=== PATIENT | female | born 1980 | race Caucasian/White ===

== ENCOUNTER 2016-12-20 03:51 | Inpatient (IN) | payer OTHER ==
[2016-12-20] VITALS (14 sets, daily range): BP systolic 127–142; BP diastolic 82–104
[~2016-12-20] VITALS: Ht 160 cm; Wt 38.7 kg
[~2016-12-20 03:51] MED LIST: CRAN1TAB PO; FOLI1TAB2 PO; IMOD2TAB16 PO; INVA1INJ IV; LOPR1TAB6 PO; LYRI75CA PO; METO25TAB PO; NICO21PAT TD; OXAZ10CA PO; PANT40TA2 PO; PERCOCET PO; POTA10CA PO; PROTPAK PO; Pantoprazole Sodium PO; SERT-138 PO; SIME1CAP PO; SUCR1SS PO; Sucralfate PO; Thiamine Hcl PO; VALI5TAB PO; VITA50TA PO; VITMTA PO; ZOFR20TA PO; ZOFR4TAB3 PO; ZOLO100T PO
[2016-12-20] MEDS ORDERED: OXAZEPAM 15 MG CAP As Ordered ONE (04:50)
[2016-12-20] MEDS ORDERED: LORazepam 2 MG/ML VIAL (J2060) As Ordered ONE (04:50)
[2016-12-20 05:03] LABS: MEAN CORPUSCULAR HEMOGLOBIN 26.9 pg (27.0-33.0); MEAN CORPUSCULAR HGB CONC 31.8 g/dl (32.0-36.5); MEAN CORPUSCULAR VOLUME 84.4 fl (80.0-96.0); RED CELL DISTRIBUTION WIDTH 19.3 % (11.5-14.5); WHITE BLOOD COUNT 5.8 K/mm3 (4.0-10.0)
[2016-12-20 05:10] LABS: ALBUMIN/GLOBULIN RATIO 0.71 (1.00-1.93); ALKALINE PHOSPHATASE 646 U/L (45-117); ALT/SGPT 445 U/L (12-78); ANION GAP 12 MEQ/L (8-16); AST/SGOT 741 U/L (15-37); BILIRUBIN,DIRECT 1.3 MG/DL (0.0-0.2); BILIRUBIN,TOTAL 1.8 MG/DL (0.2-1.0); BLOOD UREA NITROGEN 11 MG/DL (7-18); CALCIUM LEVEL 7.7 MG/DL (8.5-10.1); CARBON DIOXIDE LEVEL 25 MEQ/L (21-32); CHLORIDE LEVEL 101 MEQ/L (98-107); CREATININE FOR GFR 0.64 MG/DL (0.55-1.02); GLOMERULAR FILTRATION RATE > 60.0 (>60); GLUCOSE, FASTING 108 MG/DL (70-105); MAGNESIUM LEVEL 1.9 MG/DL (1.8-2.4); POTASSIUM SERUM 3.3 MEQ/L (3.5-5.1); SODIUM LEVEL 138 MEQ/L (136-145); TOTAL PROTEIN 7.2 GM/DL (6.4-8.2)
[2016-12-20 06:24] LABS: INR 1.12
--- NOTE | 2016-12-20 07:00 | REPUSA ---
CLINICAL HISTORY: Abdominal pain. TECHNIQUE: Realtime sonographic images were obtained in multiple projections. COMMENTS: The liver is of normal size, parenchyma demonstrates normal echogenicity. No discrete hepatic mass is seen. There is no intra or extrahepatic biliary ductal dilatation. CBD measures 9.6 mm . The gallbladder is surgically absent. The gallbladder wall is not thickened and there is no pericholecystic fluid. Ther e is no abdominal ascites. The right kidney measures 10.1x5x4.2 cm, free of hydronephrosis. IMPRESSION: Cholecystectomy. Nondilated biliary tree. Thank you for your kind referral of this patient.
[2016-12-20] MEDS ORDERED: POTASSIUM CHLORIDE 10 MEQ SR TABLET As Ordered ONE (07:03)
--- NOTE | 2016-12-20 07:59 | REP ---
PA CHEST: 12/20/2016. Comparison: 04/10/2016 portable chest. Clinical history: Altered mental status. Findings: The lung natarajan are well inflated. Heart is not enlarged. There is no widening of the mediastinum. The aorta and airway intact. There is no pleural effusion, lateral pleural thickening or apical pneumothorax. Haziness over the lung natarajan, right greater than left in the mid chest suggest overlying breast tissue. No air bronchograms or dense consolidation. No definite atelectasis or mass. Bones intact. No free air. Impression: 1. No acute cardiopulmonary change. Hazy density bilaterally midchest most likely represents the overlying breast tissue. Signed by Clarence John MD 12/20/2016 07:22 P
--- NOTE | 2016-12-20 08:00 | REPUSA ---
CLINICAL HISTORY: AMS. TECHNIQUE: Multiple axial brain CT scan sections were obtained from base to vertex without contrast a dministration. COMMENTS: The study shows normal configuration of sella turcica. There are no intra or extra-axial collections. There is no mass effect or midline shift. There is no evidence of hematoma formation. No hydrocephal us is present. No abnormal calcifications are noted. No significant abnormalities are seen either in the posterior fossa or supratentorial compartment. The sinuses and mastoid air cells are patent. IMPRESSION: No evidence of acute intracranial pathology. Thank you for your kind referral of this patient.
[2016-12-20] MEDS ORDERED: BUSP10TA PO (08:07)
[2016-12-20] MEDS ORDERED: BUSP5TA PO (08:07)
[2016-12-20] MEDS ORDERED: METO25TA74 PO (08:09)
[2016-12-20] MEDS ORDERED: HYDR50CA2 PO (08:09)
[2016-12-20] MEDS ORDERED: MELA3TAB PO (08:10)
[2016-12-20] MEDS ORDERED: SUCR1TAB56 PO (08:10)
[2016-12-20] MEDS ORDERED: POTA99TA PO (08:13)
[2016-12-20] MEDS ORDERED: RANI150T PO (08:13)
[2016-12-20] MEDS ORDERED: ZOFR20TA PO (08:13)
[2016-12-20] MEDS ORDERED: MAGN500T2 PO (08:13)
--- NOTE | 2016-12-20 09:49 | EDDOCDS ---
Nurse's Notes [facility] Name: Quynh Hoyos Age: 36 yrs Sex: Female : 1980 Arrival Date: 12/20/2016 Time: 03:51 Bed 10 Private MD: Diagnosis: Weakness;Alcohol abuse;Alcohol abuse counseling and surveillance;Alcohol abuse with other alcohol-induced disorder;Alcoholic hepatitis-with confusion Presentation: 12/20 03:56 Presenting complaint: Patient states: she is going through alcohol withdrawal, states nn1 she is getting ready to go to rehab. States she is drinking less than usual. Reports she feels very dehydrated. Reports she normally drank a pint/day and is now down to half pint/day. Reports feeling disoriented. States she was sent to [place] from [place] 2 weeks ago due to low electrolyte levels. Mental Health Triage Level: Level 1- Pt displays no suicidal or homicidal ideations and does not appear to be a danger to self or others. Adult Sepsis Screening: The patient does not have new or worsening altered mentation. Patient's respiratory rate is less than 22. Systolic blood pressure is greater than 100. Patient has a qSOFA score of 0- Negative Sepsis Screen. Suicide/Homicide risk assessment- the patient denies having any suicidal and/or homicidal ideations and does not present with any other emotional, behavioral or mental health complaints. Status: The patient is a dependent. Transition of care: patient was not received from another setting of care. 03:56 Acuity: KELVIN Level 3 nn1 03:56 Method Of Arrival: Wheelchair nn1 Triage Assessment: 04:06 General: Appears ill, Behavior is appropriate for age, cooperative. Pain: Location: nn1 face and abdomen Pain currently is 6 out of 10 on a pain scale. HIV screening NA for this visit Offered previously. Neurological: Level of Consciousness is awake, alert, obeys commands, Oriented to person, place, time. Respiratory: Airway is patent Respiratory effort is even, unlabored, Respiratory pattern is regular, symmetrical. Derm: Skin is pale. 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 BuSpar 10mg at 8am and 12pm; 5mg at 5pm oral tab 2. hydroxyzine HCl 50 mg Oral tab 2 tabs three times a day 3. Lopressor 25mg Oral 1 tab once daily 4. Lyrica 75mg Oral 1 cap 3 times per day 5. melatonin 3 mg Oral TbDL as needed 6. sucralfate 1 gram Oral tab 4 times per day 7. Zantac 150 mg Oral tab once daily 8. Zofran (as hydrochloride) 4 mg Oral tab 2 tabs prn 9. Zoloft 100 mg Oral tab 1 tab once daily 10. potassium chloride Unknown Oral 11. magnesium oxide 400 mg Oral tab - PMHx: Fibromyalgia; GERD; gi bleed; Alcoholism; ''Fast heart rate''; RLS; Hypokalemia; - PSHx: ; Hysterectomy; Cholecystectomy; - Social history: Smoking status: Patient uses tobacco products, light tobacco smoker. No barriers to communication noted, The patient speaks fluent Somali, Speaks appropriately for age. - Family history: Not pertinent. - : The pt / caregiver states he / she is not on anticoagulants. Home medication list is obtained from the patient, family members. - Exposure Risk Screening:: None identified. Screenin:31 Screening information is obtained from the patient. Fall risk: No risks identified. af2 Assistance ADL's: requires no assistance with activities of daily living. Abuse/DV Screen: The patient / caregiver reports he/she is: not in a situation that causes fear, pain or injury. Nutritional screening: No deficits noted. Advance Directives: Currently, there is no health care proxy. home support is adequate. Assessment: 04:32 General: Appears in no apparent distress, comfortable, Behavior is appropriate for age, af2 cooperative. Neurological: Level of Consciousness is awake, alert, obeys commands. Cardiovascular: Heart tones S1 S2 present. Respiratory: Airway is patent Respiratory effort is even, unlabored. Derm: Skin is normal. 05:30 General: Appears in no apparent distress, comfortable, Behavior is appropriate for age, af2 cooperative. Respiratory: Airway is patent Respiratory effort is even, unlabored. Derm: Skin is normal. 06:45 General: Appears in no apparent distress, comfortable, Behavior is appropriate for age, af2 cooperative. General: pt resting quietly on stretcher with eyes closed. rr even and unlabored.. Neurological: Level of Consciousness is awake, alert, obeys commands. Respiratory: Airway is patent Respiratory effort is even, unlabored. Derm: Skin is normal. 07:07 General: Appears in no apparent distress, comfortable, Behavior is appropriate for age, pml crying. Pain: Denies pain. Neurological: Level of Consciousness is awake, alert, Oriented to person, place, time. Cardiovascular: Capillary refill < 3 seconds. Respiratory: Airway is patent Respiratory effort is even, unlabored. Derm: Skin is pink, warm & dry. 08:35 General: resting quietly on stretcher, resps easy and unlabored, skin p/w/d. voices no pml complaints.. 09:35 General: Appears in no apparent distress, comfortable, Behavior is appropriate for age, pml cooperative. Neurological: Level of Consciousness is awake, alert, Oriented to person, place, time. Cardiovascular: Capillary refill < 3 seconds. Respiratory: Airway is patent Respiratory effort is even, unlabored. Derm: Skin is pink, warm & dry. Vital Signs: 04:05 BP 119 / 84; Pulse 111; Resp 18; Temp 97.8(O); Pulse Ox 96% on R/A; Weight 38.56 kg; nn1 Height 5 ft. 3 in. (160.02 cm); Pain 6/10; 07:07 BP 124 / 90; Pulse 101; Resp 18; Pulse Ox 95% on R/A; pml 09:45 BP 124 / 83; Pulse 98; Resp 18; Temp 97.1; Pulse Ox 100% on R/A; Pain 0/10; pml 04:05 Body Mass Index 15.06 (38.56 kg, 160.02 cm) nn1 Vitals: 04:05 Log In Time: December 20, 2016 at 03:51. nn1 ED Course: 03:53 Patient visited by Sana Reed. gjb 03:53 Patient moved to Waiting gj 03:59 Triage Initiated nn1 04:14 Tess Yarbrough,RN is Primary Nurse. nn1 04:14 Patient moved to 10 nn1 04:31 The patient / caregiver is instructed regarding the plan of care and ED course. Patient af2 has correct armband on for positive identification. Placed in gown. 04:31 Inserted saline lock: 18 gauge in right forearm and blood collected. The patient af2 tolerated the procedure well. No procedures done that require assistance. 04:32 Patient visited by Tess Yarbrough RN. af2 04:33 Alvaro Alonso DO is Attending Physician. mm11 04:33 Patient visited by Alvaro Alonso DO. mm11 04:46 Patient visited by Alvaro Alonso DO. mm11 05:31 [facility] Payment Agreement was scanned into [employer] and attached to record. pm4 05:41 Patient visited by Tess Yarbrough RN. af2 06:10 Patient visited by Tess Yarbrough RN. af2 06:47 Patient visited by Alvaro Alonso DO. mm11 06:50 Ammonia (Little [place] Tube on Ice, Not Pea Green) Sent. af2 06:51 Patient visited by Tess Yarbrough RN. af2 06:54 Attending Physician role handed off by Alvaro Alonso DO ml 06:54 Deepti Hightower MD is Attending Physician. ml 07:08 Patient visited by Dilma Paul RN. pml 07:12 Dilma Paul RN is Primary Nurse. pml 07:25 Gallbladder US Returned. EDMS 07:27 Primary Nurse role handed off by Tess Yarbrough RN mlb1 07:28 Orlin Mcdowell is Hospitalizing Provider. ml 08:02 Chest, 1 View Returned. EDMS 08:02 CT Head Without Contrast Returned. EDMS 08:25 Patient visited by Reid Sung PCA. jrd 08:25 EKG done. (by ED staff). Reviewed by Deepti Hightower MD. jrd 08:36 Patient visited by Dilma Paul RN. pml 09:36 Patient visited by Dilma Paul RN. pml Administered Medications: 05:00 Drug: Oxazepam 30 mg [oxazepam 15 mg capsule (2 caps)] Route: PO; af2 06:52 Follow up: Response: Anxiety is improved af2 05:01 Drug: LR 1000 ml [lactated ringers intravenous solution] Route: IV; Rate: bolus; Site: af2 right antecubital; 06:52 Follow up: IV Status: Completed infusion af2 05:01 Drug: LORazepam 1 mg [lorazepam 2 mg/mL injection solution (0.5 mL)] Route: IVP; Site: af2 right antecubital; 06:53 Follow up: Response: Anxiety is improved af2 07:07 Drug: Potassium Chloride 40 mEq [potassium chloride ER 10 mEq tablet,extended release pml (4 tabs)] Route: PO; 08:41 Drug: D5-1/2 NS 1000 ml [dextrose 5 % and 0.45 % sodium chloride intravenous solution] pml Route: IV; Rate: 150 mL/hr; Site: right antecubital; :46 Follow up: IV Status: Infusion continued upon admit; IV Intake: 200ml pml Intake: :46 IV: 200.00ml; Total: 200.00ml. pml Order Results: Lab Order: Acetaminophen Level; SPEC12/20/16 04:27 Test: ACETAMINOPHEN LEVEL; Value: < 2.0; Range: 10.0-30.0; Abnormal: Below low normal; Units: UG/ML; Status: F Lab Order: Basic Metabolic Profile; SPEC12/20/16 04:27 Test: GLUCOSE, FASTING; Value: 108; Range: 70-105; Abnormal: Above high normal; Units: MG/DL; Status: F Test: BLOOD UREA NITROGEN; Value: 11; Range: 7-18; Units: MG/DL; Status: F Test: CREATININE FOR GFR; Value: 0.64; Range: 0.55-1.02; Units: MG/DL; Status: F Test: GLOMERULAR FILTRATION RATE; Value: > 60.0; Range: >60; Status: F Test: SODIUM LEVEL; Value: 138; Range: 136-145; Units: MEQ/L; Status: F Test: POTASSIUM SERUM; Value: 3.3; Range: 3.5-5.1; Abnormal: Below low normal; Units: MEQ/L; Status: F Test: CHLORIDE LEVEL; Value: 101; Range: 98-107; Units: MEQ/L; Status: F Test: CARBON DIOXIDE LEVEL; Value: 25; Range: 21-32; Units: MEQ/L; Status: F Test: ANION GAP; Value: 12; Range: 8-16; Units: MEQ/L; Status: F Test: CALCIUM LEVEL; Value: 7.7; Range: 8.5-10.1; Abnormal: Below low normal; Units: MG/DL; Status: F Test Note: ; Units are mL/min/1.73 m2 Chronic Kidney Disease Staging per NKF: Stage I & II GFR >=60 Normal to Mildly Decreased Stage III GFR 30-59 Moderately Decreased Stage IV GFR 15-29 Severely Decreased Stage V GFR <15 Very Little GFR Left ESRD GFR <15 on MEDICAL ASSISTING INSTRUCTOR Lab Order: Complete Blood Count; 12/20/16 04:27 Test: WHITE BLOOD COUNT; Value: 5.8; Range: 4.0-10.0; Units: K/mm3; Status: F Test: RED BLOOD COUNT; Value: 4.83; Range: 4.00-5.40; Units: M/mm3; Status: F Test: HEMOGLOBIN; Value: 13.0; Range: 12.0-16.0; Units: g/dl; Status: F Test: HEMATOCRIT; Value: 40.8; Range: 36.0-47.0; Units: %; Status: F Test: MEAN CORPUSCULAR VOLUME; Value: 84.4; Range: 80.0-96.0; Units: fl; Status: F Test: MEAN CORPUSCULAR HEMOGLOBIN; Value: 26.9; Range: 27.0-33.0; Abnormal: Below low normal; Units: pg; Status: F Test: MEAN CORPUSCULAR HGB CONC; Value: 31.8; Range: 32.0-36.5; Abnormal: Below low normal; Units: g/dl; Status: F Test: RED CELL DISTRIBUTION WIDTH; Value: 19.3; Range: 11.5-14.5; Abnormal: Above high normal; Units: %; Status: F Test: PLATELET COUNT, AUTOMATED; Value: 68; Range: 150-450; Abnormal: Below low normal; Units: k/mm3; Status: F Lab Order: Ethyl Alcohol (ethanol); 12/20/16 04:27 Test: ETHYL ALCOHOL (ETHANOL); Value: 0.311; Range: 0.000-0.010; Abnormal: Above high normal; Units: %; Status: F Lab Order: Liver Profile; 12/20/16 04:27 Test: AST/SGOT; Value: 741; Range: 15-37; Abnormal: Above high normal; Units: U/L; Status: F Test: ALT/SGPT; Value: 445; Range: 12-78; Abnormal: Above high normal; Units: U/L; Status: F Test: ALKALINE PHOSPHATASE; Value: 646; Range: 45-117; Abnormal: Above high normal; Units: U/L; Status: F Test: BILIRUBIN,TOTAL; Value: 1.8; Range: 0.2-1.0; Abnormal: Above high normal; Units: MG/DL; Status: F Test: BILIRUBIN,DIRECT; Value: 1.3; Range: 0.0-0.2; Abnormal: Above high normal; Units: MG/DL; Status: F Test: TOTAL PROTEIN; Value: 7.2; Range: 6.4-8.2; Units: GM/DL; Status: F Test: ALBUMIN; Value: 3.0; Range: 3.2-5.2; Abnormal: Below low normal; Units: GM/DL; Status: F Test: ALBUMIN/GLOBULIN RATIO; Value: 0.71; Range: 1.00-1.93; Abnormal: Below low normal; Status: F Lab Order: Salicylate Level; [facility] 12/20/16 04:27 Test: SALICYLATE LEVEL; Value: < 1.7; Range: 5.0-30.0; Abnormal: Below low normal; Units: MG/DL; Status: F Lab Order: Thyroid Stimulating Hormone; [facility] 12/20/16 04:27 Test: THYROID STIMULATING HORMONE; Value: 3.120; Range: 0.358-3.740; Units: uIU/ML; Status: F Lab Order: Magnesium Level; [facility] 12/20/16 04:27 Test: MAGNESIUM LEVEL; Value: 1.9; Range: 1.8-2.4; Units: MG/DL; Status: F Lab Order: Pt & Aptt; [facility] 12/20/16 04:29 Test: PROTHROMBIN TIME; Value: 14.5; Range: 12.3-14.5; Units: SECONDS; Status: F Test: INR; Value: 1.12; Status: F Test: PARTIAL THROMBOPLASTIN TIME; Value: 31.2; Range: 26.6-37.1; Units: SECONDS; Status: F Test Note: ; THERAPUTIC HUMAN INR VALUES INDICATIONS NORMAL RANGES PROPHYLAXIS/TREATMENT OF: VENOUS THROMBOSIS 2.0-3.0 PULMONARY EMBOLISM 2.0-3.0 PREVENTION OF SYSTEMIC EMBOLISM FROM: TISSUE HEART VALVES 2.0-3.0 ACUTE MYOCARDIAL INFARCTION 2.0-3.0 VALVULAR HEART DISEASE 2.0-3.0 ATRIAL FIBRILLATION 2.0-3.0 MECHANICAL VALVES(HIGH RISK) 2.5-3.5 RECURRENT MYOCARDIAL INFARCTION 2.5-3.5 Lab Order: Ammonia (Little [place] Tube on Ice, Not Pea Green); SPEC'M 12/20/16 06:47 Test: AMMONIA; Value: 21; Range: <32; Units: uMOL/L; Status: F Radiology Order: Gallbladder US Test: Gallbladder US REASON FOR EXAMINATION: eval for cirrosis; ; CLINICAL HISTORY: Abdominal pain.; TECHNIQUE: Realtime sonographic images were obtained in multiple projections.; COMMENTS:; The liver is of normal size, parenchyma demonstrates normal echogenicity. No discrete hepatic mass is; seen.; There is no intra or extrahepatic biliary ductal dilatation. CBD measures 9.6 mm . The gallbladder is; surgically absent. The gallbladder wall is not thickened and there is no pericholecystic fluid. Ther; e is no abdominal ascites.; The right kidney measures 10.1x5x4.2 cm, free of hydronephrosis.; IMPRESSION:; Cholecystectomy.; Nondilated biliary tree.; Thank you for your kind referral of this patient.; ; Radiology Order: CT Head Without Contrast Test: CT Head Without Contrast REASON FOR EXAMINATION: altered ms; ; CLINICAL HISTORY: AMS.; TECHNIQUE: Multiple axial brain CT scan sections were obtained from base to vertex without contrast a; dministration.; COMMENTS:; The study shows normal configuration of sella turcica. There are no intra or extra-axial collections.; There is no mass effect or midline shift. There is no evidence of hematoma formation. No hydrocephal; us is present. No abnormal calcifications are noted.; No significant abnormalities are seen either in the posterior fossa or supratentorial compartment.; The sinuses and mastoid air cells are patent.; IMPRESSION:; No evidence of acute intracranial pathology.; Thank you for your kind referral of this patient.; ; Radiology Order: Chest, 1 View Test: Chest, 1 View REASON FOR EXAMINATION: confusion; PA CHEST: 12/20/2016.; ; Comparison: 04/10/2016 portable chest.; ; Clinical history: Altered mental status.; ; Findings: The lung natarajan are well inflated. Heart is not enlarged. There is; no widening of the mediastinum. The aorta and airway intact. There is no; pleural effusion, lateral pleural thickening or apical pneumothorax. Haziness; over the lung natarajan, right greater than left in the mid chest suggest overlying; breast tissue. No air bronchograms or dense consolidation. No definite; atelectasis or mass. Bones intact. No free air.; ; Impression:; 1. No acute cardiopulmonary change. Hazy density bilaterally midchest most; likely represents the overlying breast tissue.; ; ; ; ; ; ; Unreviewed; Outcome: 07:28 Decision to Hospitalize by Provider. 09:45 Discharge Assessment: Patient awake, alert and oriented x 3. No cognitive and/or pml functional deficits noted. Patient verbalized understanding of disposition instructions. patient administered narcotics - no. The following High Risk Discharge criteria are identified: None. Admitted to Med/Surg accompanied by tech, via stretcher, with chart. Condition: stable. No special radiology studies were completed. Admission hand-off: Report Faxed Fax receipt verified by [employer]. Property :Personal belongings accompany Pt. 09:48 Patient left the ED. pml Signatures: Dispatcher [employer] EDMS Deepti Hightower MD MD ml Barney, Michael B RN RN mlb1 Alvaro Alonso, DO mm11 Dilma PaulRN RN pml Reid Sung, AUTO BODY WORKER AUTO BODY WORKER d Tess Yarbrough RN RN af2 Tomeka Nevarez RN RN betty1 Sana Reed Paul, Reg Reg pm4 MTDD
--- NOTE | 2016-12-20 09:49 | EDDOCDS ---
Physician Documentation [facility] Name: Quynh Hoyos Age: 36 yrs Sex: Female : 1980 Arrival Date: 12/20/2016 Time: 03:51 Bed 10 Private MD: Disposition: 12/20/16 07:28 Hospitalization ordered by Orlin Mcdowell for Inpatient Admission. Preliminary diagnosis are Weakness, Alcohol abuse, Alcohol abuse counseling and surveillance, Alcohol abuse with other alcohol-induced disorder, Alcoholic hepatitis - with confusion. - Bed requested for 4 [place]. - Status is Inpatient Admission. pml - Condition is Stable. - Problem is new. - Symptoms are unchanged. Historical: - Allergies: Latex; - Home Meds: 1. BuSpar 10mg at 8am and 12pm; 5mg at 5pm oral tab 2. hydroxyzine HCl 50 mg Oral tab 2 tabs three times a day 3. Lopressor 25mg Oral 1 tab once daily 4. Lyrica 75mg Oral 1 cap 3 times per day 5. melatonin 3 mg Oral TbDL as needed 6. sucralfate 1 gram Oral tab 4 times per day 7. Zantac 150 mg Oral tab once daily 8. Zofran (as hydrochloride) 4 mg Oral tab 2 tabs prn 9. Zoloft 100 mg Oral tab 1 tab once daily 10. potassium chloride Unknown Oral 11. magnesium oxide 400 mg Oral tab - PMHx: Fibromyalgia; GERD; gi bleed; Alcoholism; ''Fast heart rate''; RLS; Hypokalemia; - PSHx: ; Hysterectomy; Cholecystectomy; - Social history: Smoking status: Patient uses tobacco products, light tobacco smoker. No barriers to communication noted, The patient speaks fluent Grenadian, Speaks appropriately for age. - Family history: Not pertinent. - : The pt / caregiver states he / she is not on anticoagulants. Home medication list is obtained from the patient, family members. - Exposure Risk Screening:: None identified. 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 3 in. (160.02 cm); Pain 6/10; 07:07 BP 124 / 90; Pulse 101; Resp 18; Pulse Ox 95% on R/A; pml 09:45 BP 124 / 83; Pulse 98; Resp 18; Temp 97.1; Pulse Ox 100% on R/A; Pain 0/10; pml 04:05 Body Mass Index 15.06 (38.56 kg, 160.02 cm) nn1 MDM: 04:48 IV Saline Lock ordered. mm11 04:48 LR Solution 1000 ml IV at bolus once ordered. mm11 04:48 LORazepam 1 mg IVP once ordered. mm11 04:48 Oxazepam 30 mg PO once ordered. mm11 04:48 Acetaminophen Level Ordered. EDMS 04:48 Basic Metabolic Profile Ordered. EDMS 04:48 Complete Blood Count Ordered. EDMS 04:48 Drug Eval Toxicology ED Only Ordered. EDMS 04:48 Ethyl Alcohol (ethanol) Ordered. EDMS 04:48 Liver Profile Ordered. EDMS 04:48 Salicylate Level Ordered. EDMS 04:48 Thyroid Stimulating Hormone Ordered. EDMS 04:48 Magnesium Level Ordered. EDMS 05:25 Financial registration complete. pm4 05:31 [facility] Payment Agreement was scanned into [employer] and attached to record. pm4 05:34 Acetaminophen Level Reviewed. mm11 05:34 Basic Metabolic Profile Reviewed. mm11 05:34 Ethyl Alcohol (ethanol) Reviewed. mm11 05:34 Liver Profile Reviewed. mm11 05:34 Salicylate Level Reviewed. mm11 05:34 Thyroid Stimulating Hormone Reviewed. mm11 05:34 Magnesium Level Reviewed. mm11 05:57 Complete Blood Count Reviewed. mm11 06:00 Pt & Aptt Ordered. EDMS 06:00 Ammonia ([place] Tube on Ice, Not Pea Green) Ordered. EDMS 06:07 Gallbladder US Ordered. EDMS 06:35 Misc Personal Counselor Order ordered. mm11 06:36 Pt & Aptt Reviewed. mm11 06:50 Misc Personal Counselor Order complete. af2 06:55 Potassium Chloride Extended Release Tablet 40 mEq PO once ordered. mm11 07:19 Ammonia ([place] Tube on Ice, Not Pea Green) Reviewed. ml 07:21 BED REQUEST+ADM ordered. EDMS 07:22 D5-1/2 NS 1000 ml IV at 150 mL/hr continuous ordered. ml 07:22 CT Head Without Contrast Ordered. EDMS 07:24 Chest, 1 View Ordered. EDMS 07:31 ECG WITH READING ER PHYS+CARDIAG ordered. EDMS 09:02 Admission / Observation Status ordered. EDMS 09:02 OTHER CUSTOM DIETS ordered. EDMS Administered Medications: 05:00 Drug: Oxazepam 30 mg [oxazepam 15 mg capsule (2 caps)] Route: PO; af2 06:52 Follow up: Response: Anxiety is improved af2 05:01 Drug: LR 1000 ml [lactated ringers intravenous solution] Route: IV; Rate: bolus; Site: af2 right antecubital; 06:52 Follow up: IV Status: Completed infusion af2 05:01 Drug: LORazepam 1 mg [lorazepam 2 mg/mL injection solution (0.5 mL)] Route: IVP; Site: af2 right antecubital; 06:53 Follow up: Response: Anxiety is improved af2 07:07 Drug: Potassium Chloride 40 mEq [potassium chloride ER 10 mEq tablet,extended release pml (4 tabs)] Route: PO; 08:41 Drug: D5-1/2 NS 1000 ml [dextrose 5 % and 0.45 % sodium chloride intravenous solution] pml Route: IV; Rate: 150 mL/hr; Site: right antecubital; 09:46 Follow up: IV Status: Infusion continued upon admit; IV Intake: 200ml pml Signatures: Dispatcher [employer] [facility] Deepti Hightower MD MD Alvaro Alonso DO DO mm11 Dilma Paul RN RN pml Tess Yarbrough RN RN af2 Tomeka Nevarez RN RN nn1 Emerita Infante RN RN lmg Vin Ortiz, Reg Reg pm4 The chart was reviewed and I authenticate all verbal orders and agree with the evaluation and treatment provided.Attachments: 05:31 [facility] Payment Agreement pm4 MTDD
[2016-12-20] MEDS: PANTOPRAZOLE 40MG INJ (PROTONIX) (C9113) IV SCH (11:56)
[2016-12-20] MEDS ORDERED: MULTIVITAMIN -ADULT INJECTION 10 ML, THIAMINE INJection 100 MG, FOLIC ACID 1 MG in NS 1... IV ONE (12:00)
--- NOTE | 2016-12-20 12:57 | ECGEPIP ---
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
[2016-12-20] MEDS: LORazepam 2 MG/ML VIAL (J2060) IV PRN ×3 (13:26→22:02)
[2016-12-20] MEDS: OXAZEPAM 10 MG CAP PO SCH ×3 (14:20→22:57)
[2016-12-20] MEDS: ONDANSETRON 4MG/2ML VIAL (J2405) IV PRN (16:07)
[2016-12-20] MEDS: METOPROLOL SUCC *XL* 25MG TAB (TopROL *XL*) PO SCH (18:29)
[2016-12-20] MEDS: busPIRone 5 MG TAB PO SCH (20:10)
[2016-12-20] MEDS: MAGNESIUM OXIDE 400 MG TAB (MAG-OX) PO SCH (20:10)
[2016-12-20] MEDS: SERTRALINE 100 MG TAB PO SCH (20:10)
[2016-12-20] MEDS: PREGABALIN 75 MG CAP(LYRICA) PO SCH (20:10)
[2016-12-20] MEDS: SUCRALFATE 1 GM TAB PO SCH (20:10)
[2016-12-20] MEDS: PROMETHAZINE INJ 25 MG/ML VIAL (J2550) IV PRN (20:34)
[2016-12-20] MEDS: NICOTINE 14 MG/24 HR TRANSDERMAL TD SCH (20:35)
[2016-12-21] VITALS (7 sets, daily range): BP systolic 119–131; BP diastolic 76–92
[2016-12-21] MEDS: ONDANSETRON 4MG/2ML VIAL (J2405) IV PRN ×3 (01:22→22:14)
[2016-12-21] MEDS: OXAZEPAM 10 MG CAP PO SCH ×3 (06:20→21:58)
[2016-12-21 06:45] LABS: BASO % 0.1 % (0.0-1.0); EOS # 0.1 K/mm3 (0.0-0.50); EOS % 2.1 % (0.0-3.0); LARGE UNSTAINED CELL % 0.5 % (0.0-4.0); LYMPH # 1.8 K/mm3 (1.5-4.5); LYMPH % 40.7 % (24.0-44.0); MEAN CORPUSCULAR HEMOGLOBIN 26.3 pg (27.0-33.0); MEAN CORPUSCULAR HGB CONC 31.3 g/dl (32.0-36.5); MEAN CORPUSCULAR VOLUME 84.3 fl (80.0-96.0); MONO # 0.2 K/mm3 (0.0-0.8); MONO % 4.4 % (0.0-5.0); NEUTROPHILS # 2.3 K/mm3 (1.8-7.7); NEUTROPHILS % 52.2 % (36.0-66.0); RED CELL DISTRIBUTION WIDTH 19.7 % (11.5-14.5); WHITE BLOOD COUNT 4.4 K/mm3 (4.0-10.0)
[2016-12-21 06:46] LABS: PLATELET COUNT, AUTOMATED 46 k/mm3 (150-450)
[2016-12-21 07:03] LABS: ALBUMIN 2.4 GM/DL (3.2-5.2); ALBUMIN/GLOBULIN RATIO 0.71 (1.00-1.93); ALKALINE PHOSPHATASE 454 U/L (45-117); ALT/SGPT 264 U/L (12-78); ANION GAP 9 MEQ/L (8-16); AST/SGOT 381 U/L (15-37); BILIRUBIN,TOTAL 2.3 MG/DL (0.2-1.0); BLOOD UREA NITROGEN 5 MG/DL (7-18); CALCIUM LEVEL 8.1 MG/DL (8.5-10.1); CARBON DIOXIDE LEVEL 26 MEQ/L (21-32); CHLORIDE LEVEL 105 MEQ/L (98-107); CREATININE FOR GFR 0.45 MG/DL (0.55-1.02); GLOMERULAR FILTRATION RATE > 60.0 (>60); GLUCOSE, FASTING 92 MG/DL (70-105); MAGNESIUM LEVEL 1.6 MG/DL (1.8-2.4); PHOSPHORUS LEVEL 2.5 MG/DL (2.5-4.9); POTASSIUM SERUM 3.5 MEQ/L (3.5-5.1); SODIUM LEVEL 140 MEQ/L (136-145); TOTAL PROTEIN 5.8 GM/DL (6.4-8.2)
[2016-12-21] MEDS ORDERED: MAG SULF 1GM/100ML (MAG RUN) 1 GM in APPROPRIATE DILUENT 1 EA IV ONE (08:00)
[2016-12-21] MEDS: PANTOPRAZOLE 40MG INJ (PROTONIX) (C9113) IV SCH (08:19)
[2016-12-21] MEDS: NICOTINE 14 MG/24 HR TRANSDERMAL TD SCH (08:19)
[2016-12-21] MEDS: MAGNESIUM OXIDE 400 MG TAB (MAG-OX) PO SCH ×2 (08:20→21:58)
[2016-12-21] MEDS: SUCRALFATE 1 GM TAB PO SCH ×4 (08:20→21:59)
[2016-12-21] MEDS: PREGABALIN 75 MG CAP(LYRICA) PO SCH ×3 (08:20→21:58)
[2016-12-21] MEDS: FOLIC ACID 1 MG TAB PO SCH (08:20)
[2016-12-21] MEDS: busPIRone 10 MG TAB PO SCH ×2 (08:20→12:26)
[2016-12-21] MEDS: POTASSIUM CHLORIDE 10 MEQ SR TABLET PO SCH (08:20)
[2016-12-21] MEDS: THIAMINE 100 MG TAB PO SCH (08:20)
[2016-12-21] MEDS: METOPROLOL SUCC *XL* 25MG TAB (TopROL *XL*) PO SCH (08:20)
[2016-12-21] MEDS: LORazepam 2 MG/ML VIAL (J2060) IV PRN (09:41)
[2016-12-21] MEDS: PROMETHAZINE INJ 25 MG/ML VIAL (J2550) IV PRN (09:41)
--- NOTE | 2016-12-21 11:39 | IPNPDOC ---
Subjective General Date Seen The patient was seen on 12/21/16. Subjective Chief Complaint/HPI The patient is a 36-year-old female admitted with a reason for visit of Alcoholic Hepatitis. Events since last encounter feeling better this morning has a little tremulousness, no fever or chills, no vomiting or diarrhea, has some nausea, and some generalised abdominal soreness. Objective Physical Examination General Exam: Positive: Alert, No Acute Distress Eye Exam: Positive: Conjunctiva & lids normal, EOMI, PERRLA, Negative: Sclera icteric ENT Exam: Positive: Atraumatic, Mucous membr. moist/pink, Pharynx Normal Neck Exam: Positive: Supple, Negative: JVD, thyromegaly Chest Exam: Positive: Clear to auscultation, Normal air movement Heart Exam: Positive: Normal S1, Normal S2, Rate Normal, Regular Rhythm, Negative: Murmurs, Rubs Abdomen Exam: Positive: Normal bowel sounds, Soft, Tenderness Extremity Exam: Positive: Normal pulses, Negative: Clubbing, Cyanosis, Edema Assessment /Plan Problems Problems: (1) Alcoholic hepatitis Status: Acute Problem Text: did not meet criteria for prednisone or pentoxyphyline. has been binge drinking hepatitis serology is in progress [facility] [place] [facility] through the [employer]. continue thiamine and folate. (2) Alcohol intoxication Status: Acute Problem Text: will continue to monitor for withdrawal continue serax and ativan prn. (3) Hypokalemia Status: Acute Problem Text: replaced (4) Hypomagnesemia Status: Acute Problem Text: replaced (5) Thrombocytopenia Status: Acute Problem Text: possibly due to bone marrow suppression by alcohol however cannot rule out underlying cirrhosis liver US did not show any cirrhotic architexture. Had EGD and colonscopy in 2016 did not show any varices. (6) GERD (gastroesophageal reflux disease) Status: Chronic (7) Fibromyalgia Status: Chronic Plan/VTE VTE Prophylaxis Ordered?: Yes VS, I&O, 24H, Fishbone Vital Signs/I&O Vital Signs Date Time Temp Pulse Resp B/P Pulse Ox O2 Delivery O2 Flow Rate FiO2 12/21/16 08:20 90 131/88 12/21/16 06:00 96.1 20 94 Room Air I&O- Last 24 Hours up to 6 AM 12/21/16 06:00 Intake Total 2591.2 ml Output Total 300 ml Balance 2291.2 ml Laboratory Data 24H LABS Laboratory Tests 2 12/21/16 05:57: Blood Urea Nitrogen 5#L, Creatinine 0.45L, Sodium Level 140, Potassium Level 3.5 , Chloride Level 105, Carbon Dioxide Level 26, Calcium Level 8.1L, Phosphorus Level 2.5, Aspartate Amino Transf (AST/SGOT) 381H, Alanine Aminotransferase (ALT /SGPT) 264H, Alkaline Phosphatase 454H, Total Bilirubin 2.3H, Total Protein 5.8L , Albumin 2.4L, Albumin/Globulin Ratio 0.71L, Anion Gap 9, White Blood Count 4.4 , Red Blood Count 3.66L, Hemoglobin 9.6#L, Hematocrit 30.8L, Mean Corpuscular Volume 84.3, Mean Corpuscular Hemoglobin 26.3L, Mean Corpuscular Hemoglobin Concent 31.3L, Red Cell Distribution Width 19.7H, Platelet Count 46L, Neutrophils (%) (Auto) 52.2, Lymphocytes (%) (Auto) 40.7, Monocytes (%) (Auto) 4.4, Eosinophils (%) (Auto) 2.1, Basophils (%) (Auto) 0.1, Neutrophils # (Auto) 2.3, Lymphocytes # (Auto) 1.8, Monocytes # (Auto) 0.2, Eosinophils # (Auto) 0.1 , Basophils # (Auto) 0.0, Glomerular Filtration Rate > 60.0, Large Unclassified Cells # 0.0, Large Unclassified Cells % 0.5, Magnesium Level 1.6L CBC/BMP Laboratory Tests 12/21/16 05:57 Calcium Level 8.1 L, Phosphorus Level 2.5, Aspartate Amino Transf (AST/SGOT) 381 H, Alanine Aminotransferase (ALT/SGPT) 264 H, Alkaline Phosphatase 454 H, Total Bilirubin 2.3 H, Total Protein 5.8 L, Albumin 2.4 L, Red Blood Count 3.66 L, Mean Corpuscular Volume 84.3, Mean Corpuscular Hemoglobin 26.3 L, Mean Corpuscular Hemoglobin Concent 31.3 L, Red Cell Distribution Width 19.7 H, Neutrophils (%) (Auto) 52.2, Lymphocytes (%) (Auto) 40.7, Monocytes (%) (Auto) 4.4, Eosinophils (%) (Auto) 2.1, Basophils (%) (Auto) 0.1, Neutrophils # (Auto) 2.3, Lymphocytes # (Auto) 1.8, Monocytes # (Auto) 0.2, Eosinophils # (Auto) 0.1 , Basophils # (Auto) 0.0 DENI MICHAEL MD Dec 21, 2016 11:39
--- NOTE | 2016-12-21 14:15 | HPE ---
DATE OF ADMISSION: 12/20/2016 PRIMARY CARE PHYSICIAN: Nisa Reeder. CHIEF COMPLAINT: Increasing confusion, increasing sedation, poor appetite as per , going through alcohol withdrawal. PAST MEDICAL HISTORY: 1. Alcohol abuse. 2. Gastroesophageal reflux disease (GERD). 3. Fibromyalgia. 4. Restless leg syndrome. 5. Recent electrolyte abnormalities. HISTORY OF PRESENT ILLNESS: This is a 36-year-old female with alcoholism, who was recently hospitalized at [facility] and then transferred to [place] three weeks ago for alcohol intoxication and electrolyte imbalance. Was released from [place] two weeks ago. 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 The patient was supposed to fly to [place] on 12/19/2016; however, as per , she has been more confused, more drowsier, and as per patient, she has been undergoing alcohol withdrawal, so they came to our emergency room. In the emergency department (ED), the patient was found to have intoxicated with an alcohol level of 0.311. The patient was also found to have most probably alcoholic hepatitis with elevated AST to 741, ALT to 445, alkaline phosphatase to 646. Total bilirubin elevated to 1.8, and direct bilirubin 1.3. The patient's ammonia level was normal at 21. The patient was admitted for alcohol intoxication and alcoholic hepatitis. Even with a level of 0.311 of alcohol in the blood, the patient was tremulous, shaky and, as per her, was having withdrawal symptoms and the patient was tachycardic 211, though not hypertensive. The patient was given Serax 30 mg, Ativan 2 mg in the ED, after which her symptoms improved and she fell asleep. On my initial history, the patient was deeply sedated and could not provide any information. Most of the information was taken from the chart. Later on, I spoke with the patient's and found that after discharge [place], she has still been binge drinking; however, it is about half of what she usually used to drink. He also tells me that they have again contacted the inpatient alcohol rehabilitation center, and she already has a bed secured there, so as soon as she is able to fly down to [place], she will be admitted there for alcohol rehabilitation. PAST SURGICAL HISTORY: 1. section. 2. Hysterectomy. 3. Cholecystectomy. 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 Abuses alcohol. Does not use recreational drugs. FAMILY HISTORY: Not pertinent. HOME MEDICATIONS: - buspirone 10 mg by mouth twice a day at 8 o'clock and 12 o'clock, and 5 mg every evening at 5 p.m. -hydroxyzine 100 mg by mouth three times a day - magnesium 500 mg by mouth at bedtime - melatonin 3 mg at bedtime - metoprolol succinate 25 mg by mouth daily - ondansetron 4 mg as needed for nausea or vomiting - potassium 99 mg at bedtime - Lyrica 75 mg three times a day - ranitidine one tablet by mouth daily - sertraline 100 mg by mouth at bedtime - Sucralfate 1 gram by mouth four times a day REVIEW OF SYSTEMS: The patient denies any fever or chills. Denies any chest pain or shortness of breath. Denies any abdominal pain, though complains of poor appetite. Denies any nausea or vomiting at present. Denies any fevers or chills. PHYSICAL EXAMINATION: VITAL SIGNS: Blood pressure 124/90, pulse 101, respiratory rate 18, temperature 97.8, pulse oximetry 95% on room air. GENERAL: The patient deeply sedated on my initial exam; however, later on in the day, she was awake but easily falling asleep, responding appropriately to questions and following commands. HEENT: Normocephalic, atraumatic. Moist mucous membranes. Mildly icteric eyes. CHEST: Clear to auscultation. CARDIOVASCULAR: S1, S2, regular. No rub, murmur or gallop. ABDOMEN: Soft, nontender. Bowel sounds present. EXTREMITIES: No edema. LABORATORY DATA: WBC 5.8, hemoglobin 13, platelets 68. Sodium 138, potassium 3.3, chloride 101, bicarbonate 25, BUN 11, creatinine 0.64, calcium 7.7, glucose 108, magnesium 1.9. Total bilirubin 1.8. Direct bilirubin 1.38. AST 741, ALT 445, alkaline phosphatase 646. Ammonia 21. Total protein 7.2, albumin 3. Coagulation studies are normal. Toxicology shows an alcohol level of 0.311. IMAGING: Gallbladder ultrasound shows cholecystectomy, nondilated biliary tree. CT head: No evidence of acute intracranial pathology. Chest x-ray: There is no acute cardiopulmonary disease. ASSESSMENT AND PLAN: This is a 36-year-old female admitted for alcoholic hepatitis and alcohol intoxication. PLAN: 1. Alcoholic hepatitis. The patient has been binge drinking so most probably as a result of that, the patient has had liver function test (LFTs) on 11/22 with AST of 199, ALT 54, alkaline phosphatase of 186 and a total bilirubin of 2.2, so at present with refraining from alcohol, the patient's hepatitis should improve. We will send hepatitis B and C and serology if LFTs continue to rise. The patient's discriminant function factor is only 13, so does not qualify for glucocorticoids. As well, the patient's William alcoholic hepatitis score was also less than nine, so did not qualify for prednisone. We will continue with intravenous (IV) hydration, thiamine, folate, correction of electrolytes. 2. Alcohol intoxication. The patient is a chronic alcoholic who came in with an alcohol level of 0.311. We will continue the patient on Serax and Ativan as needed for symptoms of withdrawal. The patient did go into mild withdrawal in the ED; however, with the Serax and Ativan, improved. The patient already has an inpatient alcohol rehabilitation bed in [place]. As soon as the patient is stabilized from the hospital, the patient will be discharged to go into inpatient rehabilitation. 3. Hypokalemia. We will replace potassium. 4. Thrombocytopenia. Most probably due to severe alcohol intoxication and bone marrow suppression from that. At this point, I do not believe the patient has cirrhosis. The patient has not yet developed cirrhosis. The patient had gallbladder and liver ultrasound which did not show any cirrhotic features. The patient's coagulation studies profile remains normal, so the thrombocytopenia is most probably related to severe alcohol mediated bone marrow suppression. 5. History of fibromyalgia. 6. Restless leg syndrome. We will continue the patient on buspirone, Lyrica. 7. Deep venous thrombosis (DVT) prophylaxis with thromboembolism deterrent stockings (TEDs) and sequentials. 8. Gastroesophageal reflux disease (GERD). We will continue with pantoprazole and Sucralfate. 9. History of hypomagnesemia. Will continue with magnesium oxide by mouth.
[2016-12-21] MEDS: SERTRALINE 100 MG TAB PO SCH (21:58)
[2016-12-21] MEDS: busPIRone 5 MG TAB PO SCH (21:58)
[2016-12-22] VITALS (8 sets, daily range): BP systolic 106–140; BP diastolic 70–95
[2016-12-22] MEDS: LORazepam 2 MG/ML VIAL (J2060) IV PRN ×3 (01:32→22:07)
[2016-12-22] MEDS: OXAZEPAM 10 MG CAP PO SCH ×3 (06:11→21:05)
[2016-12-22] MEDS: ONDANSETRON 4MG/2ML VIAL (J2405) IV PRN ×3 (06:12→22:07)
[2016-12-22 06:35] LABS: BASO % 0.1 % (0.0-1.0); EOS % 0.8 % (0.0-3.0); LARGE UNSTAINED CELL # 0.1 K/mm3 (0.0-0.4); LARGE UNSTAINED CELL % 2.2 % (0.0-4.0); LYMPH # 2.2 K/mm3 (1.5-4.5); LYMPH % 51.3 % (24.0-44.0); MEAN CORPUSCULAR HGB CONC 30.5 g/dl (32.0-36.5); MEAN CORPUSCULAR VOLUME 85.2 fl (80.0-96.0); MONO # 0.1 K/mm3 (0.0-0.8); MONO % 2.9 % (0.0-5.0); NEUTROPHILS # 1.8 K/mm3 (1.8-7.7); NEUTROPHILS % 42.6 % (36.0-66.0); RED CELL DISTRIBUTION WIDTH 18.9 % (11.5-14.5); WHITE BLOOD COUNT 4.3 K/mm3 (4.0-10.0)
[2016-12-22 06:36] LABS: PLATELET COUNT, AUTOMATED 44 k/mm3 (150-450)
[2016-12-22 06:39] LABS: ALBUMIN 2.5 GM/DL (3.2-5.2); ALBUMIN/GLOBULIN RATIO 0.71 (1.00-1.93); ALKALINE PHOSPHATASE 408 U/L (45-117); ALT/SGPT 182 U/L (12-78); ANION GAP 5 MEQ/L (8-16); AST/SGOT 153 U/L (15-37); BILIRUBIN,TOTAL 1.5 MG/DL (0.2-1.0); BLOOD UREA NITROGEN 2 MG/DL (7-18); CALCIUM LEVEL 8.6 MG/DL (8.5-10.1); CARBON DIOXIDE LEVEL 31 MEQ/L (21-32); CHLORIDE LEVEL 106 MEQ/L (98-107); GLOMERULAR FILTRATION RATE > 60.0 (>60); GLUCOSE, FASTING 107 MG/DL (70-105); MAGNESIUM LEVEL 1.5 MG/DL (1.8-2.4); POTASSIUM SERUM 4.3 MEQ/L (3.5-5.1); SODIUM LEVEL 142 MEQ/L (136-145)
[2016-12-22] MEDS: PANTOPRAZOLE 40MG INJ (PROTONIX) (C9113) IV SCH (08:25)
[2016-12-22] MEDS: THIAMINE 100 MG TAB PO SCH (08:26)
[2016-12-22] MEDS: FOLIC ACID 1 MG TAB PO SCH (08:26)
[2016-12-22] MEDS: MAGNESIUM OXIDE 400 MG TAB (MAG-OX) PO SCH ×3 (08:26→21:05)
[2016-12-22] MEDS: SUCRALFATE 1 GM TAB PO SCH ×4 (08:26→21:04)
[2016-12-22] MEDS: PREGABALIN 75 MG CAP(LYRICA) PO SCH ×3 (08:26→21:05)
[2016-12-22] MEDS: MAG SULF 1GM/100ML (MAG RUN) 1 GM in APPROPRIATE DILUENT 1 EA IV SCH ×2 (08:26→09:56)
[2016-12-22] MEDS: busPIRone 10 MG TAB PO SCH ×2 (08:26→13:52)
[2016-12-22] MEDS: METOPROLOL SUCC *XL* 25MG TAB (TopROL *XL*) PO SCH (08:26)
[2016-12-22] MEDS: POTASSIUM CHLORIDE 10 MEQ SR TABLET PO SCH (08:27)
[2016-12-22] MEDS: NICOTINE 14 MG/24 HR TRANSDERMAL TD SCH (08:27)
[2016-12-22] MEDS ORDERED: IBUPROFEN 800 MG TAB PO ONE (09:30)
--- NOTE | 2016-12-22 10:49 | EDDOCDS ---
Physician Documentation [facility] Name: Quynh Hoyos Age: 36 yrs Sex: Female : 1980 Arrival Date: 12/20/2016 Time: 03:51 Bed 10 Private MD: Disposition: 12/20/16 07:28 Hospitalization ordered by Orlin Mcdowell for Inpatient Admission. Preliminary diagnosis are Weakness, Alcohol abuse, Alcohol abuse counseling and surveillance, Alcohol abuse with other alcohol-induced disorder, Alcoholic hepatitis - with confusion. - Bed requested for 4 [place]. - Status is Inpatient Admission. pml - Condition is Stable. - Problem is new. - Symptoms are unchanged. Historical: - Allergies: Latex; - Home Meds: 1. BuSpar 10mg at 8am and 12pm; 5mg at 5pm oral tab 2. hydroxyzine HCl 50 mg Oral tab 2 tabs three times a day 3. Lopressor 25mg Oral 1 tab once daily 4. Lyrica 75mg Oral 1 cap 3 times per day 5. melatonin 3 mg Oral TbDL as needed 6. sucralfate 1 gram Oral tab 4 times per day 7. Zantac 150 mg Oral tab once daily 8. Zofran (as hydrochloride) 4 mg Oral tab 2 tabs prn 9. Zoloft 100 mg Oral tab 1 tab once daily 10. potassium chloride Unknown Oral 11. magnesium oxide 400 mg Oral tab - PMHx: Fibromyalgia; GERD; gi bleed; Alcoholism; ''Fast heart rate''; RLS; Hypokalemia; - PSHx: ; Hysterectomy; Cholecystectomy; - Social history: Smoking status: Patient uses tobacco products, light tobacco smoker. No barriers to communication noted, The patient speaks fluent Haitian, Speaks appropriately for age. - Family history: Not pertinent. - : The pt / caregiver states he / she is not on anticoagulants. Home medication list is obtained from the patient, family members. - Exposure Risk Screening:: None identified. 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 3 in. (160.02 cm); Pain 6/10; 07:07 BP 124 / 90; Pulse 101; Resp 18; Pulse Ox 95% on R/A; pml 09:45 BP 124 / 83; Pulse 98; Resp 18; Temp 97.1; Pulse Ox 100% on R/A; Pain 0/10; pml 04:05 Body Mass Index 15.06 (38.56 kg, 160.02 cm) nn1 MDM: 04:48 IV Saline Lock ordered. mm11 04:48 LR Solution 1000 ml IV at bolus once ordered. mm11 04:48 LORazepam 1 mg IVP once ordered. mm11 04:48 Oxazepam 30 mg PO once ordered. mm11 04:48 Acetaminophen Level Ordered. EDMS 04:48 Basic Metabolic Profile Ordered. EDMS 04:48 Complete Blood Count Ordered. EDMS 04:48 Drug Eval Toxicology ED Only Ordered. EDMS 04:48 Ethyl Alcohol (ethanol) Ordered. EDMS 04:48 Liver Profile Ordered. EDMS 04:48 Salicylate Level Ordered. EDMS 04:48 Thyroid Stimulating Hormone Ordered. EDMS 04:48 Magnesium Level Ordered. EDMS 05:25 Financial registration complete. pm4 05:31 [facility] [place] was scanned into [employer] and attached to record. pm4 05:34 Acetaminophen Level Reviewed. mm11 05:34 Basic Metabolic Profile Reviewed. mm11 05:34 Ethyl Alcohol (ethanol) Reviewed. mm11 05:34 Liver Profile Reviewed. mm11 05:34 Salicylate Level Reviewed. mm11 05:34 Thyroid Stimulating Hormone Reviewed. mm11 05:34 Magnesium Level Reviewed. mm11 05:57 Complete Blood Count Reviewed. mm11 06:00 Pt & Aptt Ordered. EDMS 06:00 Ammonia (Little Green Tube on Ice, Not Pea Green) Ordered. EDMS 06:07 Gallbladder US Ordered. EDMS 06:35 Misc Vp Foundation Order ordered. mm11 06:36 Pt & Aptt Reviewed. mm11 06:50 Misc Vp Foundation Order complete. af2 06:55 Potassium Chloride Extended Release Tablet 40 mEq PO once ordered. mm11 07:19 Ammonia (Little Green Tube on Ice, Not Pea Green) Reviewed. ml 07:21 BED REQUEST+ADM ordered. EDMS 07:22 D5-1/2 NS 1000 ml IV at 150 mL/hr continuous ordered. ml 07:22 CT Head Without Contrast Ordered. EDMS 07:24 Chest, 1 View Ordered. EDMS 07:31 ECG WITH READING ER PHYS+CARDIAG ordered. EDMS 09:02 Admission / Observation Status ordered. EDMS 09:02 OTHER CUSTOM DIETS ordered. EDMS 18:00 T-Sheet-- Draft Copy was scanned into [employer] and attached to record. klr 02 16:13 Other: DARIA was scanned into [employer] and attached to record. mt4 17:57 ECG/EKG was scanned into [employer] and attached to record. kf3 Administered Medications: 12/20 05:00 Drug: Oxazepam 30 mg [oxazepam 15 mg capsule (2 caps)] Route: PO; af2 06:52 Follow up: Response: Anxiety is improved af2 05:01 Drug: LR 1000 ml [lactated ringers intravenous solution] Route: IV; Rate: bolus; Site: af2 right antecubital; 06:52 Follow up: IV Status: Completed infusion af2 05:01 Drug: LORazepam 1 mg [lorazepam 2 mg/mL injection solution (0.5 mL)] Route: IVP; Site: af2 right antecubital; 06:53 Follow up: Response: Anxiety is improved af2 07:07 Drug: Potassium Chloride 40 mEq [potassium chloride ER 10 mEq tablet,extended release pml (4 tabs)] Route: PO; 08:41 Drug: D5-1/2 NS 1000 ml [dextrose 5 % and 0.45 % sodium chloride intravenous solution] pml Route: IV; Rate: 150 mL/hr; Site: right antecubital; 09:46 Follow up: IV Status: Infusion continued upon admit; IV Intake: 200ml pml Signatures: Dispatcher [employer] EDAK Deepti Hightower MD MD ml Maynard, Matthew, DO mm11 Mario Gonzalez, Reg Reg kf3 Gracie Ferguson mt4 Dilma Paul RN RN pml Fulton, Amber, RN RN af2 Tomeka Nevarez RN RN nn1 Nara Lama Lisa, RN RN lmg Vin Ortiz, Reg Reg pm4 The chart was reviewed and I authenticate all verbal orders and agree with the evaluation and treatment provided.Attachments: 05:31 [facility] [place] Agreement pm4 18:00 T-Sheet-- Draft Copy klr 17:57 ECG/EKG kf3 Chart Complete MTDD
--- NOTE | 2016-12-22 10:49 | EDDOCDS ---
Physician Documentation [facility] Name: Quynh Hoyos Age: 36 yrs Sex: Female : 1980 Arrival Date: 12/20/2016 Time: 03:51 Bed 10 Private MD: Disposition: 12/20/16 07:28 Hospitalization ordered by Orlin Mcdowell for Inpatient Admission. Preliminary diagnosis are Weakness, Alcohol abuse, Alcohol abuse counseling and surveillance, Alcohol abuse with other alcohol-induced disorder, Alcoholic hepatitis - with confusion. - Bed requested for 4 [place]. - Status is Inpatient Admission. pml - Condition is Stable. - Problem is new. - Symptoms are unchanged. Historical: - Allergies: Latex; - Home Meds: 1. BuSpar 10mg at 8am and 12pm; 5mg at 5pm oral tab 2. hydroxyzine HCl 50 mg Oral tab 2 tabs three times a day 3. Lopressor 25mg Oral 1 tab once daily 4. Lyrica 75mg Oral 1 cap 3 times per day 5. melatonin 3 mg Oral TbDL as needed 6. sucralfate 1 gram Oral tab 4 times per day 7. Zantac 150 mg Oral tab once daily 8. Zofran (as hydrochloride) 4 mg Oral tab 2 tabs prn 9. Zoloft 100 mg Oral tab 1 tab once daily 10. potassium chloride Unknown Oral 11. magnesium oxide 400 mg Oral tab - PMHx: Fibromyalgia; GERD; gi bleed; Alcoholism; ''Fast heart rate''; RLS; Hypokalemia; - PSHx: ; Hysterectomy; Cholecystectomy; - Social history: Smoking status: Patient uses tobacco products, light tobacco smoker. No barriers to communication noted, The patient speaks fluent Azerbaijani, Speaks appropriately for age. - Family history: Not pertinent. - : The pt / caregiver states he / she is not on anticoagulants. Home medication list is obtained from the patient, family members. - Exposure Risk Screening:: None identified. 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 3 in. (160.02 cm); Pain 6/10; 07:07 BP 124 / 90; Pulse 101; Resp 18; Pulse Ox 95% on R/A; pml 09:45 BP 124 / 83; Pulse 98; Resp 18; Temp 97.1; Pulse Ox 100% on R/A; Pain 0/10; pml 04:05 Body Mass Index 15.06 (38.56 kg, 160.02 cm) nn1 MDM: 04:48 IV Saline Lock ordered. mm11 04:48 LR Solution 1000 ml IV at bolus once ordered. mm11 04:48 LORazepam 1 mg IVP once ordered. mm11 04:48 Oxazepam 30 mg PO once ordered. mm11 04:48 Acetaminophen Level Ordered. EDMS 04:48 Basic Metabolic Profile Ordered. EDMS 04:48 Complete Blood Count Ordered. EDMS 04:48 Drug Eval Toxicology ED Only Ordered. EDMS 04:48 Ethyl Alcohol (ethanol) Ordered. EDMS 04:48 Liver Profile Ordered. EDMS 04:48 Salicylate Level Ordered. EDMS 04:48 Thyroid Stimulating Hormone Ordered. EDMS 04:48 Magnesium Level Ordered. EDMS 05:25 Financial registration complete. pm4 05:31 [facility] [place] Agreement was scanned into [employer] and attached to record. pm4 05:34 Acetaminophen Level Reviewed. mm11 05:34 Basic Metabolic Profile Reviewed. mm11 05:34 Ethyl Alcohol (ethanol) Reviewed. mm11 05:34 Liver Profile Reviewed. mm11 05:34 Salicylate Level Reviewed. mm11 05:34 Thyroid Stimulating Hormone Reviewed. mm11 05:34 Magnesium Level Reviewed. mm11 05:57 Complete Blood Count Reviewed. mm11 06:00 Pt & Aptt Ordered. EDMS 06:00 Ammonia (Little Green Tube on Ice, Not Pea Green) Ordered. EDMS 06:07 Gallbladder US Ordered. EDMS 06:35 Misc Wood Scrap Handler Order ordered. mm11 06:36 Pt & Aptt Reviewed. mm11 06:50 Misc Wood Scrap Handler Order complete. af2 06:55 Potassium Chloride Extended Release Tablet 40 mEq PO once ordered. mm11 07:19 Ammonia (Little Green Tube on Ice, Not Pea Green) Reviewed. ml 07:21 BED REQUEST+ADM ordered. EDMS 07:22 D5-1/2 NS 1000 ml IV at 150 mL/hr continuous ordered. ml 07:22 CT Head Without Contrast Ordered. EDMS 07:24 Chest, 1 View Ordered. EDMS 07:31 ECG WITH READING ER PHYS+CARDIAG ordered. EDMS 09:02 Admission / Observation Status ordered. EDMS 09:02 OTHER CUSTOM DIETS ordered. EDMS 18:00 T-Sheet-- Draft Copy was scanned into [employer] and attached to record. klr 02 16:13 Other: DARIA was scanned into [email or web address] and attached to record. mt4 17:57 ECG/EKG was scanned into [email or web address] and attached to record. kf3 Administered Medications: 12/20 05:00 Drug: Oxazepam 30 mg [oxazepam 15 mg capsule (2 caps)] Route: PO; af2 06:52 Follow up: Response: Anxiety is improved af2 05:01 Drug: LR 1000 ml [lactated ringers intravenous solution] Route: IV; Rate: bolus; Site: af2 right antecubital; 06:52 Follow up: IV Status: Completed infusion af2 05:01 Drug: LORazepam 1 mg [lorazepam 2 mg/mL injection solution (0.5 mL)] Route: IVP; Site: af2 right antecubital; 06:53 Follow up: Response: Anxiety is improved af2 07:07 Drug: Potassium Chloride 40 mEq [potassium chloride ER 10 mEq tablet,extended release pml (4 tabs)] Route: PO; 08:41 Drug: D5-1/2 NS 1000 ml [dextrose 5 % and 0.45 % sodium chloride intravenous solution] pml Route: IV; Rate: 150 mL/hr; Site: right antecubital; 09:46 Follow up: IV Status: Infusion continued upon admit; IV Intake: 200ml pml Signatures: Dispatcher [employer] EDMI Deepti Hightower MD MD ml Maynard, Matthew, DO mm11 Mario Gonzalez, Reg Reg kf3 Gracie Ferguson mt4 Dilma Paul RN RN pml [place], Amber, RN RN af2 Tomeka Nevarez RN RN nn1 Nara Lama Lisa, RN RN lmg Vin Ortiz, Reg Reg pm4 The chart was reviewed and I authenticate all verbal orders and agree with the evaluation and treatment provided.Attachments: 05:31 [facility] Payment Agreement pm4 18:00 T-Sheet-- Draft Copy klr 17:57 ECG/EKG kf3 Chart Complete MTDD
--- NOTE | 2016-12-22 10:49 | EDDOCDS ---
Nurse's Notes [facility] Name: Quynh Hoyos Age: 36 yrs Sex: Female : 1980 Arrival Date: 12/20/2016 Time: 03:51 Bed 10 Private MD: Diagnosis: Weakness;Alcohol abuse;Alcohol abuse counseling and surveillance;Alcohol abuse with other alcohol-induced disorder;Alcoholic hepatitis-with confusion Presentation: 12/20 03:56 Presenting complaint: Patient states: she is going through alcohol withdrawal, states nn1 she is getting ready to go to rehab. States she is drinking less than usual. Reports she feels very dehydrated. Reports she normally drank a pint/day and is now down to half pint/day. Reports feeling disoriented. States she was sent to [place] from [place] 2 weeks ago due to low electrolyte levels. Mental Health Triage Level: Level 1- Pt displays no suicidal or homicidal ideations and does not appear to be a danger to self or others. Adult Sepsis Screening: The patient does not have new or worsening altered mentation. Patient's respiratory rate is less than 22. Systolic blood pressure is greater than 100. Patient has a qSOFA score of 0- Negative Sepsis Screen. Suicide/Homicide risk assessment- the patient denies having any suicidal and/or homicidal ideations and does not present with any other emotional, behavioral or mental health complaints. Status: The patient is a dependent. Transition of care: patient was not received from another setting of care. 03:56 Acuity: KELVIN Level 3 nn1 03:56 Method Of Arrival: Wheelchair nn1 Triage Assessment: 04:06 General: Appears ill, Behavior is appropriate for age, cooperative. Pain: Location: nn1 face and abdomen Pain currently is 6 out of 10 on a pain scale. HIV screening NA for this visit Offered previously. Neurological: Level of Consciousness is awake, alert, obeys commands, Oriented to person, place, time. Respiratory: Airway is patent Respiratory effort is even, unlabored, Respiratory pattern is regular, symmetrical. Derm: Skin is pale. 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 BuSpar 10mg at 8am and 12pm; 5mg at 5pm oral tab 2. hydroxyzine HCl 50 mg Oral tab 2 tabs three times a day 3. Lopressor 25mg Oral 1 tab once daily 4. Lyrica 75mg Oral 1 cap 3 times per day 5. melatonin 3 mg Oral TbDL as needed 6. sucralfate 1 gram Oral tab 4 times per day 7. Zantac 150 mg Oral tab once daily 8. Zofran (as hydrochloride) 4 mg Oral tab 2 tabs prn 9. Zoloft 100 mg Oral tab 1 tab once daily 10. potassium chloride Unknown Oral 11. magnesium oxide 400 mg Oral tab - PMHx: Fibromyalgia; GERD; gi bleed; Alcoholism; ''Fast heart rate''; RLS; Hypokalemia; - PSHx: ; Hysterectomy; Cholecystectomy; - Social history: Smoking status: Patient uses tobacco products, light tobacco smoker. No barriers to communication noted, The patient speaks fluent Romanian, Speaks appropriately for age. - Family history: Not pertinent. - : The pt / caregiver states he / she is not on anticoagulants. Home medication list is obtained from the patient, family members. - Exposure Risk Screening:: None identified. Screenin:31 Screening information is obtained from the patient. Fall risk: No risks identified. af2 Assistance ADL's: requires no assistance with activities of daily living. Abuse/DV Screen: The patient / caregiver reports he/she is: not in a situation that causes fear, pain or injury. Nutritional screening: No deficits noted. Advance Directives: Currently, there is no health care proxy. home support is adequate. Assessment: 04:32 General: Appears in no apparent distress, comfortable, Behavior is appropriate for age, af2 cooperative. Neurological: Level of Consciousness is awake, alert, obeys commands. Cardiovascular: Heart tones S1 S2 present. Respiratory: Airway is patent Respiratory effort is even, unlabored. Derm: Skin is normal. 05:30 General: Appears in no apparent distress, comfortable, Behavior is appropriate for age, af2 cooperative. Respiratory: Airway is patent Respiratory effort is even, unlabored. Derm: Skin is normal. 06:45 General: Appears in no apparent distress, comfortable, Behavior is appropriate for age, af2 cooperative. General: pt resting quietly on stretcher with eyes closed. rr even and unlabored.. Neurological: Level of Consciousness is awake, alert, obeys commands. Respiratory: Airway is patent Respiratory effort is even, unlabored. Derm: Skin is normal. 07:07 General: Appears in no apparent distress, comfortable, Behavior is appropriate for age, pml crying. Pain: Denies pain. Neurological: Level of Consciousness is awake, alert, Oriented to person, place, time. Cardiovascular: Capillary refill < 3 seconds. Respiratory: Airway is patent Respiratory effort is even, unlabored. Derm: Skin is pink, warm & dry. 08:35 General: resting quietly on stretcher, resps easy and unlabored, skin p/w/d. voices no pml complaints.. 09:35 General: Appears in no apparent distress, comfortable, Behavior is appropriate for age, pml cooperative. Neurological: Level of Consciousness is awake, alert, Oriented to person, place, time. Cardiovascular: Capillary refill < 3 seconds. Respiratory: Airway is patent Respiratory effort is even, unlabored. Derm: Skin is pink, warm & dry. Vital Signs: 04:05 BP 119 / 84; Pulse 111; Resp 18; Temp 97.8(O); Pulse Ox 96% on R/A; Weight 38.56 kg; nn1 Height 5 ft. 3 in. (160.02 cm); Pain 6/10; 07:07 BP 124 / 90; Pulse 101; Resp 18; Pulse Ox 95% on R/A; pml 09:45 BP 124 / 83; Pulse 98; Resp 18; Temp 97.1; Pulse Ox 100% on R/A; Pain 0/10; pml 04:05 Body Mass Index 15.06 (38.56 kg, 160.02 cm) nn1 Vitals: 04:05 Log In Time: December 20, 2016 at 03:51. nn1 ED Course: 03:53 Patient visited by Sana Reed. gjb 03:53 Patient moved to Waiting gj 03:59 Triage Initiated nn1 04:14 Tess Yarbrough,RN is Primary Nurse. nn1 04:14 Patient moved to 10 nn1 04:31 The patient / caregiver is instructed regarding the plan of care and ED course. Patient af2 has correct armband on for positive identification. Placed in gown. 04:31 Inserted saline lock: 18 gauge in right forearm and blood collected. The patient af2 tolerated the procedure well. No procedures done that require assistance. 04:32 Patient visited by Tess Yarbrough RN. af2 04:33 Alvaro Alonso DO is Attending Physician. mm11 04:33 Patient visited by Alvaro Alonso DO. mm11 04:46 Patient visited by Alvaro Alonso DO. mm11 05:31 [facility] Payment Agreement was scanned into [employer] and attached to record. pm4 05:41 Patient visited by Tess Yarbrough RN. af2 06:10 Patient visited by Tess Yarbrough RN. af2 06:47 Patient visited by Alvaro Alonso DO. mm11 06:50 Ammonia (Little Green Tube on Ice, Not Pea Green) Sent. af2 06:51 Patient visited by Tess Yarbrough RN. af2 06:54 Attending Physician role handed off by Alvaro Alonso DO ml 06:54 Deepti Hightower MD is Attending Physician. ml 07:08 Patient visited by Dilma Paul RN. pml 07:12 Dilma Paul RN is Primary Nurse. pml 07:25 Gallbladder US Returned. EDMS 07:27 Primary Nurse role handed off by Tess Yarbrough RN mlb1 07:28 Orlin Mcdowell is Hospitalizing Provider. ml 08:02 Chest, 1 View Returned. EDMS 08:02 CT Head Without Contrast Returned. EDMS 08:25 Patient visited by Reid Sung PCA. jrd 08:25 EKG done. (by ED staff). Reviewed by Deepti Hightower MD. jrd 08:36 Patient visited by Dilma Paul RN. pml 09:36 Patient visited by Dilma Paul RN. pml 18:00 T-Sheet-- Draft Copy was scanned into [employer] and attached to record. klr 12/21 16:13 Other: DARIA was scanned into [employer] and attached to record. mt4 17:57 ECG/EKG was scanned into [employer] and attached to record. kf3 Administered Medications: 12/20 05:00 Drug: Oxazepam 30 mg [oxazepam 15 mg capsule (2 caps)] Route: PO; af2 06:52 Follow up: Response: Anxiety is improved af2 05:01 Drug: LR 1000 ml [lactated ringers intravenous solution] Route: IV; Rate: bolus; Site: af2 right antecubital; 06:52 Follow up: IV Status: Completed infusion af2 05:01 Drug: LORazepam 1 mg [lorazepam 2 mg/mL injection solution (0.5 mL)] Route: IVP; Site: af2 right antecubital; 06:53 Follow up: Response: Anxiety is improved af2 07:07 Drug: Potassium Chloride 40 mEq [potassium chloride ER 10 mEq tablet,extended release pml (4 tabs)] Route: PO; 08:41 Drug: D5-1/2 NS 1000 ml [dextrose 5 % and 0.45 % sodium chloride intravenous solution] pml Route: IV; Rate: 150 mL/hr; Site: right antecubital; 09:46 Follow up: IV Status: Infusion continued upon admit; IV Intake: 200ml pml Intake: :46 IV: 200.00ml; Total: 200.00ml. pml Order Results: Lab Order: Acetaminophen Level; SPEC'M 12/20/16 04:27 Test: ACETAMINOPHEN LEVEL; Value: < 2.0; Range: 10.0-30.0; Abnormal: Below low normal; Units: UG/ML; Status: F Lab Order: Basic Metabolic Profile; SPEC'M 12/20/16 04:27 Test: GLUCOSE, FASTING; Value: 108; Range: 70-105; Abnormal: Above high normal; Units: MG/DL; Status: F Test: BLOOD UREA NITROGEN; Value: 11; Range: 7-18; Units: MG/DL; Status: F Test: CREATININE FOR GFR; Value: 0.64; Range: 0.55-1.02; Units: MG/DL; Status: F Test: GLOMERULAR FILTRATION RATE; Value: > 60.0; Range: >60; Status: F Test: SODIUM LEVEL; Value: 138; Range: 136-145; Units: MEQ/L; Status: F Test: POTASSIUM SERUM; Value: 3.3; Range: 3.5-5.1; Abnormal: Below low normal; Units: MEQ/L; Status: F Test: CHLORIDE LEVEL; Value: 101; Range: 98-107; Units: MEQ/L; Status: F Test: CARBON DIOXIDE LEVEL; Value: 25; Range: 21-32; Units: MEQ/L; Status: F Test: ANION GAP; Value: 12; Range: 8-16; Units: MEQ/L; Status: F Test: CALCIUM LEVEL; Value: 7.7; Range: 8.5-10.1; Abnormal: Below low normal; Units: MG/DL; Status: F Test Note: ; Units are mL/min/1.73 m2 Chronic Kidney Disease Staging per NKF: Stage I & II GFR >=60 Normal to Mildly Decreased Stage III GFR 30-59 Moderately Decreased Stage IV GFR 15-29 Severely Decreased Stage V GFR <15 Very Little GFR Left ESRD GFR <15 on ICE 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0-36.5; Abnormal: Below low normal; Units: g/dl; Status: F Test: RED CELL DISTRIBUTION WIDTH; Value: 19.3; Range: 11.5-14.5; Abnormal: Above high normal; Units: %; Status: F Test: PLATELET COUNT, AUTOMATED; Value: 68; Range: 150-450; Abnormal: Below low normal; Units: k/mm3; Status: F Lab Order: Ethyl Alcohol (ethanol); 12/20/16 04:27 Test: ETHYL ALCOHOL (ETHANOL); Value: 0.311; Range: 0.000-0.010; Abnormal: Above high normal; Units: %; Status: F Lab Order: Liver Profile; 12/20/16 04:27 Test: AST/SGOT; Value: 741; Range: 15-37; Abnormal: Above high normal; Units: U/L; Status: F Test: ALT/SGPT; Value: 445; Range: 12-78; Abnormal: Above high normal; Units: U/L; Status: F Test: ALKALINE PHOSPHATASE; Value: 646; Range: 45-117; Abnormal: Above high normal; Units: U/L; Status: F Test: BILIRUBIN,TOTAL; Value: 1.8; Range: 0.2-1.0; Abnormal: Above high normal; Units: MG/DL; Status: F Test: BILIRUBIN,DIRECT; Value: 1.3; Range: 0.0-0.2; Abnormal: Above high normal; Units: MG/DL; Status: F Test: TOTAL PROTEIN; Value: 7.2; Range: 6.4-8.2; Units: GM/DL; Status: F Test: ALBUMIN; Value: 3.0; Range: 3.2-5.2; Abnormal: Below low normal; Units: GM/DL; Status: F Test: ALBUMIN/GLOBULIN RATIO; Value: 0.71; Range: 1.00-1.93; Abnormal: Below low normal; Status: F Lab Order: Salicylate Level; 12/20/16 04:27 Test: SALICYLATE LEVEL; Value: < 1.7; Range: 5.0-30.0; Abnormal: Below low normal; Units: MG/DL; Status: F Lab Order: Thyroid Stimulating Hormone; 12/20/16 04:27 Test: THYROID STIMULATING HORMONE; Value: 3.120; Range: 0.358-3.740; Units: uIU/ML; Status: F Lab Order: Magnesium Level; 12/20/16 04:27 Test: MAGNESIUM LEVEL; Value: 1.9; Range: 1.8-2.4; Units: MG/DL; Status: F Lab Order: Pt & Aptt; 12/20/16 04:29 Test: PROTHROMBIN TIME; Value: 14.5; Range: 12.3-14.5; Units: SECONDS; Status: F Test: INR; Value: 1.12; Status: F Test: PARTIAL THROMBOPLASTIN TIME; Value: 31.2; Range: 26.6-37.1; Units: SECONDS; Status: F Test Note: ; THERAPUTIC HUMAN INR VALUES INDICATIONS NORMAL RANGES PROPHYLAXIS/TREATMENT OF: VENOUS THROMBOSIS 2.0-3.0 PULMONARY EMBOLISM 2.0-3.0 PREVENTION OF SYSTEMIC EMBOLISM FROM: TISSUE HEART VALVES 2.0-3.0 ACUTE MYOCARDIAL INFARCTION 2.0-3.0 VALVULAR HEART DISEASE 2.0-3.0 ATRIAL FIBRILLATION 2.0-3.0 MECHANICAL VALVES(HIGH RISK) 2.5-3.5 RECURRENT MYOCARDIAL INFARCTION 2.5-3.5 Lab Order: Ammonia ([place] Tube on Ice, Not Pea Green); SPEC'M 12/20/16 06:47 Test: AMMONIA; Value: 21; Range: <32; Units: uMOL/L; Status: F Radiology Order: Gallbladder US Test: Gallbladder US REASON FOR EXAMINATION: eval for cirrosis; ; CLINICAL HISTORY: Abdominal pain.; TECHNIQUE: Realtime sonographic images were obtained in multiple projections.; COMMENTS:; The liver is of normal size, parenchyma demonstrates normal echogenicity. No discrete hepatic mass is; seen.; There is no intra or extrahepatic biliary ductal dilatation. CBD measures 9.6 mm . The gallbladder is; surgically absent. The gallbladder wall is not thickened and there is no pericholecystic fluid. Ther; e is no abdominal ascites.; The right kidney measures 10.1x5x4.2 cm, free of hydronephrosis.; IMPRESSION:; Cholecystectomy.; Nondilated biliary tree.; Thank you for your kind referral of this patient.; ; Radiology Order: CT Head Without Contrast Test: CT Head Without Contrast REASON FOR EXAMINATION: altered ms; ; CLINICAL HISTORY: AMS.; TECHNIQUE: Multiple axial brain CT scan sections were obtained from base to vertex without contrast a; dministration.; COMMENTS:; The study shows normal configuration of sella turcica. There are no intra or extra-axial collections.; There is no mass effect or midline shift. There is no evidence of hematoma formation. No hydrocephal; us is present. No abnormal calcifications are noted.; No significant abnormalities are seen either in the posterior fossa or supratentorial compartment.; The sinuses and mastoid air cells are patent.; IMPRESSION:; No evidence of acute intracranial pathology.; Thank you for your kind referral of this patient.; ; Radiology Order: Chest, 1 View Test: Chest, 1 View REASON FOR EXAMINATION: confusion; PA CHEST: 12/20/2016.; ; Comparison: 04/10/2016 portable chest.; ; Clinical history: Altered mental status.; ; Findings: The lung natarajan are well inflated. Heart is not enlarged. There is; no widening of the mediastinum. The aorta and airway intact. There is no; pleural effusion, lateral pleural thickening or apical pneumothorax. Haziness; over the lung natarajan, right greater than left in the mid chest suggest overlying; breast tissue. No air bronchograms or dense consolidation. No definite; atelectasis or mass. Bones intact. No free air.; ; Impression:; 1. No acute cardiopulmonary change. Hazy density bilaterally midchest most; likely represents the overlying breast tissue.; ; ; ; ; ; ; Unreviewed; Outcome: 07:28 Decision to Hospitalize by Provider. 09:45 Discharge Assessment: Patient awake, alert and oriented x 3. No cognitive and/or pml functional deficits noted. Patient verbalized understanding of disposition instructions. patient administered narcotics - no. The following High Risk Discharge criteria are identified: None. Admitted to Med/Surg accompanied by tech, via stretcher, with chart. Condition: stable. No special radiology studies were completed. Admission hand-off: Report Faxed Fax receipt verified by [email or web address]. Property :Personal belongings accompany Pt. 09:48 Patient left the ED. pml Signatures: Dispatcher [employer] EDMS Deepti Hightower MD MD ml Barney, Michael B RN RN mlb1 Alvaro Alonso, DO DO mm11 Mario Gonzalez, Reg Reg kf3 Marty, Gracie mt4 Dilma PaulRN RN pml Reid Sung, JOSE ARMANDO [employer] Tess Holland RN RN af2 Tomeka NevarezRN RN nn1 Sana Reed Kathie klr Montondo, Paul, Reg Reg pm4 Chart Complete MTDD
--- NOTE | 2016-12-22 12:25 | IPNPDOC ---
Subjective General Date Seen The patient was seen on 12/22/16. Subjective Chief Complaint/HPI The patient is a 36-year-old female admitted with a reason for visit of Alcoholic Hepatitis. Events since last encounter feeling better, feeling hungry , no diarrhea last night , tremulousness better. complains of peristnt headache. no nausea or vomiting. Objective Physical Examination General Exam: Positive: Alert, No Acute Distress Eye Exam: Positive: Conjunctiva & lids normal, EOMI, PERRLA, Negative: Sclera icteric ENT Exam: Positive: Atraumatic, Mucous membr. moist/pink, Pharynx Normal Neck Exam: Positive: Supple, Negative: JVD, thyromegaly Chest Exam: Positive: Clear to auscultation, Normal air movement Heart Exam: Positive: Normal S1, Normal S2, Rate Normal, Regular Rhythm, Negative: Murmurs, Rubs Abdomen Exam: Positive: Normal bowel sounds, Soft, Tenderness Extremity Exam: Positive: Normal pulses, Negative: Clubbing, Cyanosis, Edema Assessment /Plan Problems Problems: (1) Alcoholic hepatitis Status: Acute Problem Text: did not meet criteria for prednisone or pentoxyphyline. has been binge drinking hepatitis serology is in progress [facility] [place] [facility] [employer]. continue thiamine and folate. (2) Alcohol intoxication Status: Acute Problem Text: will continue to monitor for withdrawal continue serax and ativan prn. (3) Hypokalemia Status: Acute Problem Text: replaced (4) Hypomagnesemia Status: Acute Problem Text: replaced (5) Thrombocytopenia Status: Acute Problem Text: possibly due to bone marrow suppression by alcohol however cannot rule out underlying cirrhosis liver US did not show any cirrhotic architexture. Had EGD and colonscopy in 2016 did not show any varices. (6) GERD (gastroesophageal reflux disease) Status: Chronic (7) Fibromyalgia Status: Chronic Plan/VTE VTE Prophylaxis Ordered?: Yes VS, I&O, 24H, Fishbone Vital Signs/I&O Vital Signs Date Time Temp Pulse Resp B/P Pulse Ox O2 Delivery O2 Flow Rate FiO2 12/22/16 10:00 96.1 90 16 118/70 98 Room Air I&O- Last 24 Hours up to 6 AM 12/22/16 06:00 Intake Total 1320 ml Output Total 1525 ml Balance -205 ml Laboratory Data 24H LABS Laboratory Tests 2 12/22/16 06:01: Blood Urea Nitrogen 2#L, Creatinine 0.60, Sodium Level 142, Potassium Level 4.3# , Chloride Level 106, Carbon Dioxide Level 31, Calcium Level 8.6, Aspartate Amino Transf (AST/SGOT) 153H, Alanine Aminotransferase (ALT/SGPT) 182H, Alkaline Phosphatase 408H, Total Bilirubin 1.5H, Total Protein 6.0L, Albumin 2.5L, Albumin/Globulin Ratio 0.71L, Anion Gap 5L, White Blood Count 4.3, Red Blood Count 3.55L, Hemoglobin 9.2L, Hematocrit 30.2L, Mean Corpuscular Volume 85.2, Mean Corpuscular Hemoglobin 26.0L, Mean Corpuscular Hemoglobin Concent 30.5L, Red Cell Distribution Width 18.9H, Platelet Count 44L, Neutrophils (%) ( Auto) 42.6, Lymphocytes (%) (Auto) 51.3H, Monocytes (%) (Auto) 2.9, Eosinophils (%) (Auto) 0.8, Basophils (%) (Auto) 0.1, Neutrophils # (Auto) 1.8, Lymphocytes # (Auto) 2.2, Monocytes # (Auto) 0.1, Eosinophils # (Auto) 0.0, Basophils # ( Auto) 0.0, Glomerular Filtration Rate > 60.0, Large Unclassified Cells # 0.1, Large Unclassified Cells % 2.2, Magnesium Level 1.5L CBC/BMP Laboratory Tests 12/22/16 06:01 Calcium Level 8.6, Aspartate Amino Transf (AST/SGOT) 153 H, Alanine Aminotransferase (ALT/SGPT) 182 H, Alkaline Phosphatase 408 H, Total Bilirubin 1.5 H, Total Protein 6.0 L, Albumin 2.5 L, Red Blood Count 3.55 L, Mean Corpuscular Volume 85.2, Mean Corpuscular Hemoglobin 26.0 L, Mean Corpuscular Hemoglobin Concent 30.5 L, Red Cell Distribution Width 18.9 H, Neutrophils (%) ( Auto) 42.6, Lymphocytes (%) (Auto) 51.3 H, Monocytes (%) (Auto) 2.9, Eosinophils (%) (Auto) 0.8, Basophils (%) (Auto) 0.1, Neutrophils # (Auto) 1.8, Lymphocytes # (Auto) 2.2, Monocytes # (Auto) 0.1, Eosinophils # (Auto) 0.0, Basophils # (Auto) 0.0 DENI MICHAEL MD Dec 22, 2016 12:25
[2016-12-22] MEDS ORDERED: SUMAtriptan SUCCINATE 6 MG/0.5 ML VIAL SC ONE (16:15)
[2016-12-22] MEDS: busPIRone 5 MG TAB PO SCH (21:04)
[2016-12-22] MEDS: SERTRALINE 100 MG TAB PO SCH (21:04)
[2016-12-23] MEDS ORDERED: IBUPROFEN 800 MG TAB PO ONE (01:30)
[2016-12-23 02:00] VITALS: BP 114/74
[2016-12-23] MEDS: ONDANSETRON 4MG/2ML VIAL (J2405) IV PRN ×2 (04:25→12:07)
[2016-12-23] MEDS: OXAZEPAM 10 MG CAP PO SCH ×3 (05:20→21:10)
[2016-12-23 06:00] VITALS: BP 116/83
[2016-12-23 07:31] LABS: BASO % 0.2 % (0.0-1.0); EOS # 0.1 K/mm3 (0.0-0.50); EOS % 1.7 % (0.0-3.0); LARGE UNSTAINED CELL # 0.1 K/mm3 (0.0-0.4); LYMPH # 2.5 K/mm3 (1.5-4.5); LYMPH % 38.6 % (24.0-44.0); MEAN CORPUSCULAR HEMOGLOBIN 26.8 pg (27.0-33.0); MEAN CORPUSCULAR VOLUME 86.4 fl (80.0-96.0); MONO # 0.2 K/mm3 (0.0-0.8); MONO % 2.5 % (0.0-5.0); NEUTROPHILS # 3.5 K/mm3 (1.8-7.7); RED CELL DISTRIBUTION WIDTH 19.8 % (11.5-14.5); WHITE BLOOD COUNT 6.2 K/mm3 (4.0-10.0)
[2016-12-23 07:49] LABS: ALBUMIN 2.7 GM/DL (3.2-5.2); ALBUMIN/GLOBULIN RATIO 0.71 (1.00-1.93); ALKALINE PHOSPHATASE 320 U/L (45-117); ALT/SGPT 137 U/L (12-78); ANION GAP 7 MEQ/L (8-16); AST/SGOT 77 U/L (15-37); BLOOD UREA NITROGEN 4 MG/DL (7-18); CALCIUM LEVEL 8.7 MG/DL (8.5-10.1); CARBON DIOXIDE LEVEL 29 MEQ/L (21-32); CHLORIDE LEVEL 102 MEQ/L (98-107); CREATININE FOR GFR 0.62 MG/DL (0.55-1.02); GLOMERULAR FILTRATION RATE > 60.0 (>60); GLUCOSE, FASTING 121 MG/DL (70-105); MAGNESIUM LEVEL 1.6 MG/DL (1.8-2.4); POTASSIUM SERUM 4.4 MEQ/L (3.5-5.1); SODIUM LEVEL 138 MEQ/L (136-145); TOTAL PROTEIN 6.5 GM/DL (6.4-8.2)
[2016-12-23 08:05] LABS: PLATELET COUNT, AUTOMATED 50 k/mm3 (150-450)
[2016-12-23] MEDS: POTASSIUM CHLORIDE 10 MEQ SR TABLET PO SCH (09:26)
[2016-12-23] MEDS: NICOTINE 14 MG/24 HR TRANSDERMAL TD SCH (09:26)
[2016-12-23] MEDS: MAGNESIUM OXIDE 400 MG TAB (MAG-OX) PO SCH ×3 (09:27→21:10)
[2016-12-23] MEDS: THIAMINE 100 MG TAB PO SCH (09:27)
[2016-12-23] MEDS: PREGABALIN 75 MG CAP(LYRICA) PO SCH ×3 (09:27→21:09)
[2016-12-23] MEDS: SUCRALFATE 1 GM TAB PO SCH ×4 (09:27→21:10)
[2016-12-23] MEDS: FOLIC ACID 1 MG TAB PO SCH (09:27)
[2016-12-23] MEDS: METOPROLOL SUCC *XL* 25MG TAB (TopROL *XL*) PO SCH (09:27)
[2016-12-23] MEDS: busPIRone 10 MG TAB PO SCH ×2 (09:27→12:07)
[2016-12-23] MEDS: PANTOPRAZOLE 40MG TAB (PROTONIX) PO SCH (09:27)
[2016-12-23 09:30] VITALS: BP 114/70
[2016-12-23 10:00] VITALS: BP 115/75
[2016-12-23] MEDS: MAG SULF 1GM/100ML (MAG RUN) 1 GM in APPROPRIATE DILUENT 1 EA IV SCH ×2 (12:07→13:19)
[2016-12-23] MEDS: LORazepam 1 MG TAB PO PRN ×2 (12:07→21:18)
--- NOTE | 2016-12-23 12:31 | IPNPDOC ---
Subjective General Date Seen The patient was seen on 12/23/16. Subjective Chief Complaint/HPI The patient is a 36-year-old female admitted with a reason for visit of Alcoholic Hepatitis. Events since last encounter pt seen and examined, still complaining of shaking and feeling anxious. denies any chest pain or shortness of breath but complaining of generalized aches. Objective Physical Examination General Exam: Positive: Alert, No Acute Distress Eye Exam: Positive: Conjunctiva & lids normal, EOMI, PERRLA, Negative: Sclera icteric ENT Exam: Positive: Atraumatic, Mucous membr. moist/pink, Pharynx Normal Neck Exam: Positive: Supple, Negative: JVD, thyromegaly Chest Exam: Positive: Clear to auscultation, Normal air movement Heart Exam: Positive: Normal S1, Normal S2, Rate Normal, Regular Rhythm, Negative: Murmurs, Rubs Abdomen Exam: Positive: Normal bowel sounds, Soft, Tenderness Extremity Exam: Positive: Normal pulses, Negative: Clubbing, Cyanosis, Edema Assessment /Plan Problems Problems: (1) Anemia Status: Acute Problem Text: * H&H continues to drop * pt had an EGD on february 13 2016 which showed gastritis and duodenitis * no signs of active bleeding * colonoscopy last year march 2016 no acute bleeding was found * continue to trend hemoglobin and occult blood pending * will transfuse if below 8.0 (2) Alcoholic hepatitis Status: Acute Problem Text: did not meet criteria for prednisone or pentoxyphyline. has been binge drinking hepatitis serology is in progress patient is supposed to go into inpatient alcohol rehab in [place] arranged through the [employer]. continue thiamine and folate and ativan (3) Alcohol intoxication Status: Acute Problem Text: will continue to monitor for withdrawal continue serax and ativan prn. (4) Hypokalemia Status: Resolved (5) Hypomagnesemia Status: Acute Problem Text: replaced (6) Thrombocytopenia Status: Acute Problem Text: possibly due to bone marrow suppression by alcohol however cannot rule out underlying cirrhosis liver US did not show any cirrhotic architexture. Had EGD and colonscopy in 2016 did not show any varices. (7) GERD (gastroesophageal reflux disease) Status: Chronic (8) Fibromyalgia Status: Chronic Plan/VTE VTE Prophylaxis Ordered?: Yes VS, I&O, 24H, Fishbone Vital Signs/I&O Vital Signs Date Time Temp Pulse Resp B/P Pulse Ox O2 Delivery O2 Flow Rate FiO2 12/23/16 10:00 95.6 89 16 115/75 96 Room Air I&O- Last 24 Hours up to 6 AM 12/23/16 06:00 Intake Total 1320 ml Output Total 1200 ml Balance 120 ml Laboratory Data 24H LABS Laboratory Tests 2 12/23/16 06:44: Blood Urea Nitrogen 4#L, Creatinine 0.62, Sodium Level 138, Potassium Level 4.4 , Chloride Level 102, Carbon Dioxide Level 29, Calcium Level 8.7, Aspartate Amino Transf (AST/SGOT) 77H, Alanine Aminotransferase (ALT/SGPT) 137H, Alkaline Phosphatase 320H, Total Bilirubin 1.0, Total Protein 6.5, Albumin 2.7L, Albumin/ Globulin Ratio 0.71L, Anion Gap 7L, White Blood Count 6.2, Red Blood Count 3.26L , Hemoglobin 8.7L, Hematocrit 28.2L, Mean Corpuscular Volume 86.4, Mean Corpuscular Hemoglobin 26.8L, Mean Corpuscular Hemoglobin Concent 31.0L, Red Cell Distribution Width 19.8H, Platelet Count 50L, Neutrophils (%) (Auto) 56.0, Lymphocytes (%) (Auto) 38.6, Monocytes (%) (Auto) 2.5, Eosinophils (%) (Auto) 1.7, Basophils (%) (Auto) 0.2, Neutrophils # (Auto) 3.5, Lymphocytes # (Auto) 2.5, Monocytes # (Auto) 0.2, Eosinophils # (Auto) 0.1, Basophils # (Auto) 0.0, Glomerular Filtration Rate > 60.0, Large Unclassified Cells # 0.1, Large Unclassified Cells % 1.0, Magnesium Level 1.6L CBC/BMP Laboratory Tests 12/23/16 06:44 Calcium Level 8.7, Aspartate Amino Transf (AST/SGOT) 77 H, Alanine Aminotransferase (ALT/SGPT) 137 H, Alkaline Phosphatase 320 H, Total Bilirubin 1.0, Total Protein 6.5, Albumin 2.7 L, Red Blood Count 3.26 L, Mean Corpuscular Volume 86.4, Mean Corpuscular Hemoglobin 26.8 L, Mean Corpuscular Hemoglobin Concent 31.0 L, Red Cell Distribution Width 19.8 H, Neutrophils (%) (Auto) 56.0 , Lymphocytes (%) (Auto) 38.6, Monocytes (%) (Auto) 2.5, Eosinophils (%) (Auto) 1.7, Basophils (%) (Auto) 0.2, Neutrophils # (Auto) 3.5, Lymphocytes # (Auto) 2.5, Monocytes # (Auto) 0.2, Eosinophils # (Auto) 0.1, Basophils # (Auto) 0.0 12/23/16 09:18 ZOEY AGGARWAL DO Dec 23, 2016 12:31
[2016-12-23 14:00] VITALS: BP 127/87
[2016-12-23 18:00] VITALS: BP 116/75
[2016-12-23] MEDS: SERTRALINE 100 MG TAB PO SCH (21:10)
[2016-12-23] MEDS: busPIRone 5 MG TAB PO SCH (21:10)
[2016-12-23] MEDS: PROMETHAZINE INJ 25 MG/ML VIAL (J2550) IV PRN (21:18)
[2016-12-24] MEDS ORDERED: IBUPROFEN 600 MG TAB PO ONE (02:15)
[2016-12-24] MEDS: OXAZEPAM 10 MG CAP PO SCH ×3 (04:57→22:00)
[2016-12-24] MEDS: PROMETHAZINE INJ 25 MG/ML VIAL (J2550) IV PRN (04:57)
[2016-12-24] MEDS: LORazepam 1 MG TAB PO PRN ×2 (05:29→15:07)
[2016-12-24 06:00] VITALS: BP 101/62
[2016-12-24 06:15] LABS: BASO % 0.3 % (0.0-1.0); EOS # 0.2 K/mm3 (0.0-0.50); EOS % 3.2 % (0.0-3.0); LARGE UNSTAINED CELL # 0.1 K/mm3 (0.0-0.4); LARGE UNSTAINED CELL % 1.2 % (0.0-4.0); LYMPH # 2.3 K/mm3 (1.5-4.5); LYMPH % 36.6 % (24.0-44.0); MEAN CORPUSCULAR HEMOGLOBIN 26.4 pg (27.0-33.0); MEAN CORPUSCULAR HGB CONC 30.4 g/dl (32.0-36.5); MONO # 0.2 K/mm3 (0.0-0.8); MONO % 2.9 % (0.0-5.0); NEUTROPHILS # 3.5 K/mm3 (1.8-7.7); NEUTROPHILS % 55.9 % (36.0-66.0); RED CELL DISTRIBUTION WIDTH 19.9 % (11.5-14.5); WHITE BLOOD COUNT 6.2 K/mm3 (4.0-10.0)
[2016-12-24 06:16] LABS: PLATELET COUNT, AUTOMATED 73 k/mm3 (150-450)
[2016-12-24 06:29] LABS: ALBUMIN 2.7 GM/DL (3.2-5.2); ALBUMIN/GLOBULIN RATIO 0.71 (1.00-1.93); ALKALINE PHOSPHATASE 292 U/L (45-117); ALT/SGPT 103 U/L (12-78); ANION GAP 8 MEQ/L (8-16); AST/SGOT 47 U/L (15-37); BILIRUBIN,TOTAL 0.6 MG/DL (0.2-1.0); BLOOD UREA NITROGEN 8 MG/DL (7-18); CALCIUM LEVEL 8.9 MG/DL (8.5-10.1); CARBON DIOXIDE LEVEL 30 MEQ/L (21-32); CHLORIDE LEVEL 102 MEQ/L (98-107); CREATININE FOR GFR 0.78 MG/DL (0.55-1.02); GLOMERULAR FILTRATION RATE > 60.0 (>60); GLUCOSE, FASTING 150 MG/DL (70-105); MAGNESIUM LEVEL 1.7 MG/DL (1.8-2.4); SODIUM LEVEL 140 MEQ/L (136-145); TOTAL PROTEIN 6.5 GM/DL (6.4-8.2)
[2016-12-24] MEDS: busPIRone 10 MG TAB PO SCH ×2 (08:38→12:09)
[2016-12-24] MEDS: POTASSIUM CHLORIDE 10 MEQ SR TABLET PO SCH (08:38)
[2016-12-24] MEDS: FOLIC ACID 1 MG TAB PO SCH (08:38)
[2016-12-24] MEDS: PANTOPRAZOLE 40MG TAB (PROTONIX) PO SCH (08:38)
[2016-12-24] MEDS: MAGNESIUM OXIDE 400 MG TAB (MAG-OX) PO SCH ×3 (08:39→20:18)
[2016-12-24] MEDS: PREGABALIN 75 MG CAP(LYRICA) PO SCH ×3 (08:39→20:18)
[2016-12-24] MEDS: THIAMINE 100 MG TAB PO SCH (08:39)
[2016-12-24] MEDS: NICOTINE 14 MG/24 HR TRANSDERMAL TD SCH (08:39)
[2016-12-24] MEDS: SUCRALFATE 1 GM TAB PO SCH ×4 (08:39→20:18)
[2016-12-24 08:45] VITALS: BP 107/66
[2016-12-24] MEDS: METOPROLOL SUCC *XL* 25MG TAB (TopROL *XL*) PO SCH (11:38)
[2016-12-24] MEDS ORDERED: MAG SULF 1GM/100ML (MAG RUN) 1 GM in APPROPRIATE DILUENT 1 EA IV ONE (12:00)
--- NOTE | 2016-12-24 13:56 | IPNPDOC ---
Subjective General Date Seen The patient was seen on 12/24/16. Subjective Chief Complaint/HPI The patient is a 36-year-old female admitted with a reason for visit of Alcoholic Hepatitis. Objective Physical Examination General Exam: Positive: Alert, No Acute Distress Eye Exam: Positive: Conjunctiva & lids normal, EOMI, PERRLA, Negative: Sclera icteric ENT Exam: Positive: Atraumatic, Mucous membr. moist/pink, Pharynx Normal Neck Exam: Positive: Supple, Negative: JVD, thyromegaly Chest Exam: Positive: Clear to auscultation, Normal air movement Heart Exam: Positive: Normal S1, Normal S2, Rate Normal, Regular Rhythm, Negative: Murmurs, Rubs Abdomen Exam: Positive: Normal bowel sounds, Soft, Tenderness Extremity Exam: Positive: Normal pulses, Negative: Clubbing, Cyanosis, Edema Assessment /Plan Problems Problems: (1) Anemia Status: Acute Problem Text: * H&H stable * pt had an EGD on february 13 2016 which showed gastritis and duodenitis * no signs of active bleeding * colonoscopy last year march 2016 no acute bleeding was found * continue to trend hemoglobin and occult blood pending * will transfuse if below 8.0 (2) Alcoholic hepatitis Status: Acute Problem Text: did not meet criteria for prednisone or pentoxyphyline. has been binge drinking hepatitis serology is in progress patient is supposed to go into inpatient alcohol rehab in [place] arranged through the [employer]. continue thiamine and folate and ativan (3) Alcohol intoxication Status: Acute Problem Text: will continue to monitor for withdrawal continue serax and ativan prn. will d/c once arrangement is made (4) Hypokalemia Status: Resolved (5) Hypomagnesemia Status: Acute Problem Text: will continue to replace (6) Thrombocytopenia Status: Acute Problem Text: possibly due to bone marrow suppression by alcohol however cannot rule out underlying cirrhosis liver US did not show any cirrhotic architexture. Had EGD and colonscopy in 2016 did not show any varices. (7) GERD (gastroesophageal reflux disease) Status: Chronic (8) Fibromyalgia Status: Chronic Plan/VTE VTE Prophylaxis Ordered?: Yes VS, I&O, 24H, Fishbone Vital Signs/I&O Vital Signs Date Time Temp Pulse Resp B/P Pulse Ox O2 Delivery O2 Flow Rate FiO2 12/24/16 11:38 100 107/66 12/24/16 06:00 96.8 17 95 Room Air I&O- Last 24 Hours up to 6 AM 12/24/16 05:59 Intake Total 1920 ml Output Total 1000 ml Balance 920 ml Laboratory Data 24H LABS Laboratory Tests 2 12/24/16 05:53: Blood Urea Nitrogen 8#, Creatinine 0.78, Sodium Level 140, Potassium Level 4.0, Chloride Level 102, Carbon Dioxide Level 30, Calcium Level 8.9, Aspartate Amino Transf (AST/SGOT) 47H, Alanine Aminotransferase (ALT/SGPT) 103H, Alkaline Phosphatase 292H, Total Bilirubin 0.6, Total Protein 6.5, Albumin 2.7L, Albumin/ Globulin Ratio 0.71L, Anion Gap 8, White Blood Count 6.2, Red Blood Count 3.34L , Hemoglobin 8.8L, Hematocrit 29.1L, Mean Corpuscular Volume 87.0, Mean Corpuscular Hemoglobin 26.4L, Mean Corpuscular Hemoglobin Concent 30.4L, Red Cell Distribution Width 19.9H, Platelet Count 73L, Neutrophils (%) (Auto) 55.9, Lymphocytes (%) (Auto) 36.6, Monocytes (%) (Auto) 2.9, Eosinophils (%) (Auto) 3.2H, Basophils (%) (Auto) 0.3, Neutrophils # (Auto) 3.5, Lymphocytes # (Auto) 2.3, Monocytes # (Auto) 0.2, Eosinophils # (Auto) 0.2, Basophils # (Auto) 0.0, Glomerular Filtration Rate > 60.0, Large Unclassified Cells # 0.1, Large Unclassified Cells % 1.2, Magnesium Level 1.7L CBC/BMP Laboratory Tests 12/23/16 13:48 12/23/16 18:09 12/23/16 21:57 12/24/16 05:53 Calcium Level 8.9, Aspartate Amino Transf (AST/SGOT) 47 H, Alanine Aminotransferase (ALT/SGPT) 103 H, Alkaline Phosphatase 292 H, Total Bilirubin 0.6, Total Protein 6.5, Albumin 2.7 L, Red Blood Count 3.34 L, Mean Corpuscular Volume 87.0, Mean Corpuscular Hemoglobin 26.4 L, Mean Corpuscular Hemoglobin Concent 30.4 L, Red Cell Distribution Width 19.9 H, Neutrophils (%) (Auto) 55.9 , Lymphocytes (%) (Auto) 36.6, Monocytes (%) (Auto) 2.9, Eosinophils (%) (Auto) 3.2 H, Basophils (%) (Auto) 0.3, Neutrophils # (Auto) 3.5, Lymphocytes # (Auto) 2.3, Monocytes # (Auto) 0.2, Eosinophils # (Auto) 0.2, Basophils # (Auto) 0.0 ZOEY AGGARWAL DO Dec 24, 2016 13:55
[2016-12-24 14:00] VITALS: BP 107/64
[2016-12-24] MEDS: ONDANSETRON 4 MG ORAL DISINTEGRATING TAB (S0181) PO PRN (15:07)
[2016-12-24] MEDS: busPIRone 5 MG TAB PO SCH (20:18)
[2016-12-24] MEDS: SERTRALINE 100 MG TAB PO SCH (20:18)
[2016-12-24 22:00] VITALS: BP 125/84
[2016-12-25] MEDS: LORazepam 1 MG TAB PO PRN ×2 (02:16→22:29)
[2016-12-25] MEDS: ONDANSETRON 4 MG ORAL DISINTEGRATING TAB (S0181) PO PRN ×3 (02:16→22:31)
[2016-12-25] MEDS: OXAZEPAM 10 MG CAP PO SCH ×3 (05:28→22:31)
[2016-12-25 06:00] VITALS: BP 96/61
[2016-12-25 07:11] LABS: BASO % 0.4 % (0.0-1.0); EOS # 0.1 K/mm3 (0.0-0.50); EOS % 1.1 % (0.0-3.0); LARGE UNSTAINED CELL # 0.2 K/mm3 (0.0-0.4); LARGE UNSTAINED CELL % 2.9 % (0.0-4.0); LYMPH % 35.9 % (24.0-44.0); MEAN CORPUSCULAR HEMOGLOBIN 26.8 pg (27.0-33.0); MEAN CORPUSCULAR HGB CONC 30.9 g/dl (32.0-36.5); MEAN CORPUSCULAR VOLUME 86.7 fl (80.0-96.0); MONO # 0.3 K/mm3 (0.0-0.8); MONO % 5.1 % (0.0-5.0); NEUTROPHILS % 54.6 % (36.0-66.0); PLATELET COUNT, AUTOMATED 122 k/mm3 (150-450); RED CELL DISTRIBUTION WIDTH 20.4 % (11.5-14.5); WHITE BLOOD COUNT 5.6 K/mm3 (4.0-10.0)
[2016-12-25 07:22] LABS: ALBUMIN 2.8 GM/DL (3.2-5.2); ALKALINE PHOSPHATASE 249 U/L (45-117); ALT/SGPT 77 U/L (12-78); ANION GAP 7 MEQ/L (8-16); AST/SGOT 34 U/L (15-37); BILIRUBIN,TOTAL 0.6 MG/DL (0.2-1.0); BLOOD UREA NITROGEN 15 MG/DL (7-18); CARBON DIOXIDE LEVEL 29 MEQ/L (21-32); CHLORIDE LEVEL 105 MEQ/L (98-107); CREATININE FOR GFR 0.69 MG/DL (0.55-1.02); GLOMERULAR FILTRATION RATE > 60.0 (>60); GLUCOSE, FASTING 110 MG/DL (70-105); MAGNESIUM LEVEL 2.2 MG/DL (1.8-2.4); POTASSIUM SERUM 4.4 MEQ/L (3.5-5.1); SODIUM LEVEL 141 MEQ/L (136-145); TOTAL PROTEIN 6.8 GM/DL (6.4-8.2)
[2016-12-25] MEDS: busPIRone 10 MG TAB PO SCH ×2 (09:23→12:30)
[2016-12-25] MEDS: NICOTINE 14 MG/24 HR TRANSDERMAL TD SCH (09:24)
[2016-12-25] MEDS: MAGNESIUM OXIDE 400 MG TAB (MAG-OX) PO SCH ×3 (09:24→22:30)
[2016-12-25] MEDS: PANTOPRAZOLE 40MG TAB (PROTONIX) PO SCH (09:24)
[2016-12-25] MEDS: POTASSIUM CHLORIDE 10 MEQ SR TABLET PO SCH (09:24)
[2016-12-25] MEDS: SUCRALFATE 1 GM TAB PO SCH ×4 (09:24→22:29)
[2016-12-25] MEDS: THIAMINE 100 MG TAB PO SCH (09:24)
[2016-12-25] MEDS: PREGABALIN 75 MG CAP(LYRICA) PO SCH ×3 (09:24→22:30)
[2016-12-25] MEDS: FOLIC ACID 1 MG TAB PO SCH (09:24)
[2016-12-25 09:25] VITALS: BP 96/61
[2016-12-25] MEDS: METOPROLOL SUCC *XL* 25MG TAB (TopROL *XL*) PO SCH (09:41)
--- NOTE | 2016-12-25 13:58 | IPNPDOC ---
Subjective Date Seen The patient was seen on 12/25/16. Subjective Chief Complaint/HPI The patient is a 36-year-old female admitted with a reason for visit of Alcoholic Hepatitis. Events since last encounter pt seen and examined, doing well Objective Physical Examination General Exam: Positive: Alert, No Acute Distress Eye Exam: Positive: Conjunctiva & lids normal, EOMI, PERRLA, Negative: Sclera icteric ENT Exam: Positive: Atraumatic, Mucous membr. moist/pink, Pharynx Normal Neck Exam: Positive: Supple, Negative: JVD, thyromegaly Chest Exam: Positive: Clear to auscultation, Normal air movement Heart Exam: Positive: Normal S1, Normal S2, Rate Normal, Regular Rhythm, Negative: Murmurs, Rubs Abdomen Exam: Positive: Normal bowel sounds, Soft, Tenderness Extremity Exam: Positive: Normal pulses, Negative: Clubbing, Cyanosis, Edema Assessment /Plan Problems (1) Anemia Status: Acute Problem Text: * H&H stable, occult blood is negative * pt had an EGD on february 13 2016 which showed gastritis and duodenitis * colonoscopy last year march 2016 no acute bleeding was found (2) Alcoholic hepatitis Status: Acute Problem Text: * did not meet criteria for prednisone or pentoxyphyline. * has been binge drinking * patient is supposed to go into inpatient alcohol rehab in [place] arranged through the [employer]. * continue thiamine and folate and ativan (3) Alcohol intoxication Status: Acute Problem Text: will continue to monitor for withdrawal continue serax will d/c once arrangement is made (4) Hypokalemia Status: Resolved (5) Hypomagnesemia Status: Resolved (6) Thrombocytopenia Status: Acute Response to Treatment: Improving Problem Text: possibly due to bone marrow suppression by alcohol however cannot rule out underlying cirrhosis liver US did not show any cirrhotic liver Had EGD and colonscopy in 2016 did not show any varices. (7) GERD (gastroesophageal reflux disease) Status: Chronic (8) Fibromyalgia Status: Chronic Plan/VTE VTE Prophylaxis Ordered?: Yes VS, I&O, 24H, Fishbone Vital Signs/I&O Vital Signs Date Time Temp Pulse Resp B/P Pulse Ox O2 Delivery O2 Flow Rate FiO2 12/25/16 09:41 81 96/51 12/25/16 09:30 Room Air 12/25/16 06:00 95.2 19 96 I&O- Last 24 Hours up to 6 AM 12/25/16 06:00 Intake Total 1200 ml Output Total 0 ml Balance 1200 ml Laboratory Data 24H LABS Laboratory Tests 2 12/25/16 06:37: Blood Urea Nitrogen 15#, Creatinine 0.69, Sodium Level 141, Potassium Level 4.4 , Chloride Level 105, Carbon Dioxide Level 29, Calcium Level 9.0, Aspartate Amino Transf (AST/SGOT) 34, Alanine Aminotransferase (ALT/SGPT) 77, Alkaline Phosphatase 249H, Total Bilirubin 0.6, Total Protein 6.8, Albumin 2.8L, Albumin/ Globulin Ratio 0.70L, Anion Gap 7L, White Blood Count 5.6, Red Blood Count 3.48L , Hemoglobin 9.3L, Hematocrit 30.2L, Mean Corpuscular Volume 86.7, Mean Corpuscular Hemoglobin 26.8L, Mean Corpuscular Hemoglobin Concent 30.9L, Red Cell Distribution Width 20.4H, Platelet Count 122L, Neutrophils (%) (Auto) 54.6 , Lymphocytes (%) (Auto) 35.9, Monocytes (%) (Auto) 5.1H, Eosinophils (%) (Auto ) 1.1, Basophils (%) (Auto) 0.4, Neutrophils # (Auto) 3.0, Lymphocytes # (Auto) 2.0, Monocytes # (Auto) 0.3, Eosinophils # (Auto) 0.1, Basophils # (Auto) 0.0, Glomerular Filtration Rate > 60.0, Large Unclassified Cells # 0.2, Large Unclassified Cells % 2.9, Magnesium Level 2.2 CBC/BMP Laboratory Tests 12/25/16 06:37 Calcium Level 9.0, Aspartate Amino Transf (AST/SGOT) 34, Alanine Aminotransferase (ALT/SGPT) 77, Alkaline Phosphatase 249 H, Total Bilirubin 0.6 , Total Protein 6.8, Albumin 2.8 L, Red Blood Count 3.48 L, Mean Corpuscular Volume 86.7, Mean Corpuscular Hemoglobin 26.8 L, Mean Corpuscular Hemoglobin Concent 30.9 L, Red Cell Distribution Width 20.4 H, Neutrophils (%) (Auto) 54.6 , Lymphocytes (%) (Auto) 35.9, Monocytes (%) (Auto) 5.1 H, Eosinophils (%) (Auto ) 1.1, Basophils (%) (Auto) 0.4, Neutrophils # (Auto) 3.0, Lymphocytes # (Auto) 2.0, Monocytes # (Auto) 0.3, Eosinophils # (Auto) 0.1, Basophils # (Auto) 0.0 Microbiology Microbiology 12/24/16 Stool Occult Blood (JAYLENE) - Final, Complete ZOEY AGGARWAL DO Dec 25, 2016 13:58
[2016-12-25 14:00] VITALS: BP 109/60
[2016-12-25] MEDS ORDERED: diphenhydrAMINE 25 MG CAP PO ONE (21:30)
[2016-12-25 22:00] VITALS: BP 127/74
[2016-12-25] MEDS: SERTRALINE 100 MG TAB PO SCH (22:30)
[2016-12-25] MEDS: busPIRone 5 MG TAB PO SCH (22:30)
[2016-12-26] MEDS: OXAZEPAM 10 MG CAP PO SCH (05:54)
[2016-12-26 06:00] VITALS: BP 111/79
[2016-12-26] MEDS: SUCRALFATE 1 GM TAB PO SCH ×2 (06:01→12:28)
[2016-12-26] MEDS: ONDANSETRON 4 MG ORAL DISINTEGRATING TAB (S0181) PO PRN (06:22)
[2016-12-26 06:29] LABS: MEAN CORPUSCULAR HEMOGLOBIN 26.9 pg (27.0-33.0); MEAN CORPUSCULAR HGB CONC 31.3 g/dl (32.0-36.5); MEAN CORPUSCULAR VOLUME 86.1 fl (80.0-96.0); PLATELET COUNT, AUTOMATED 170 k/mm3 (150-450); RED CELL DISTRIBUTION WIDTH 20.7 % (11.5-14.5); WHITE BLOOD COUNT 6.1 K/mm3 (4.0-10.0)
[2016-12-26 06:40] LABS: ALBUMIN 2.7 GM/DL (3.2-5.2); ALBUMIN/GLOBULIN RATIO 0.66 (1.00-1.93); ALKALINE PHOSPHATASE 229 U/L (45-117); ALT/SGPT 59 U/L (12-78); ANION GAP 7 MEQ/L (8-16); AST/SGOT 32 U/L (15-37); BILIRUBIN,TOTAL 0.5 MG/DL (0.2-1.0); BLOOD UREA NITROGEN 12 MG/DL (7-18); CALCIUM LEVEL 9.1 MG/DL (8.5-10.1); CARBON DIOXIDE LEVEL 31 MEQ/L (21-32); CHLORIDE LEVEL 103 MEQ/L (98-107); CREATININE FOR GFR 0.76 MG/DL (0.55-1.02); GLOMERULAR FILTRATION RATE > 60.0 (>60); GLUCOSE, FASTING 112 MG/DL (70-105); MAGNESIUM LEVEL 1.9 MG/DL (1.8-2.4); POTASSIUM SERUM 4.4 MEQ/L (3.5-5.1); SODIUM LEVEL 141 MEQ/L (136-145); TOTAL PROTEIN 6.8 GM/DL (6.4-8.2)
[2016-12-26 07:22] LABS: BASO % 0.5 % (0.0-1.0); EOS # 0.1 K/mm3 (0.0-0.50); LARGE UNSTAINED CELL # 0.3 K/mm3 (0.0-0.4); LARGE UNSTAINED CELL % 4.4 % (0.0-4.0); LYMPH # 2.2 K/mm3 (1.5-4.5); LYMPH % 35.2 % (24.0-44.0); MONO # 0.3 K/mm3 (0.0-0.8); MONO % 5.6 % (0.0-5.0); NEUTROPHILS # 3.3 K/mm3 (1.8-7.7); NEUTROPHILS % 53.3 % (36.0-66.0)
[2016-12-26 07:24] LABS: ANISOCYTOSIS 2+; HYPOCHROMASIA 1+; TEAR DROP CELLS 1+
[2016-12-26] MEDS: PANTOPRAZOLE 40MG TAB (PROTONIX) PO SCH (09:59)
[2016-12-26] MEDS: busPIRone 10 MG TAB PO SCH ×2 (09:59→12:28)
[2016-12-26] MEDS: THIAMINE 100 MG TAB PO SCH (09:59)
[2016-12-26] MEDS: POTASSIUM CHLORIDE 10 MEQ SR TABLET PO SCH (09:59)
[2016-12-26] MEDS: PREGABALIN 75 MG CAP(LYRICA) PO SCH (09:59)
[2016-12-26] MEDS: FOLIC ACID 1 MG TAB PO SCH (09:59)
[2016-12-26] MEDS: MAGNESIUM OXIDE 400 MG TAB (MAG-OX) PO SCH (09:59)
[2016-12-26 10:00] VITALS: BP 103/62
[2016-12-26] MEDS: NICOTINE 14 MG/24 HR TRANSDERMAL TD SCH (10:00)
[2016-12-26] MEDS: METOPROLOL SUCC *XL* 25MG TAB (TopROL *XL*) PO SCH (10:00)
[2016-12-26] MEDS ORDERED: OXAZ10CA PO (12:56)
--- NOTE | 2016-12-28 16:40 | DSES ---
DATE OF ADMISSION: 12/20/2016 DATE OF DISCHARGE: 12/26/2016 REASON FOR ADMISSION: Increased confusion, sedation. PRIMARY CARE PROVIDER: The patient goes to [facility]. FINAL DIAGNOSES: 1. Anemia. 2. Alcoholic hepatitis. 3. Alcoholic intoxication. 4. Alcohol abuse. 5. Hypokalemia. 6. Hypomagnesemia. 7. Thrombocytopenia. 8. Gastroesophageal reflux disease. 9. History of fibromyalgia. HISTORY OF PRESENT ILLNESS: The patient is a 36-year-old female, past medical history significant for alcohol abuse, who presented to the emergency room with increased confusion increased sedation, poor appetite, per her has been going on through her alcohol withdrawal. The patient was recently hospitalized at [facility] and was transferred to [facility] three weeks ago for alcohol intoxication and electrolyte imbalance. She was then released from [facility] two weeks earlier. The patient was set up for inpatient alcohol rehab in [place] through the [employer]. 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 The patient was supposed to fly to [place] on 12/19/2016; however, per her , she has been was confused and drowsy, undergoing alcohol withdrawal. She came into the emergency room. She was found to be intoxicated with alcohol level was 0.311. The patient was found to be in alcohol hepatitis, AST 741, ALT 445, alkaline phosphatase 646, total bilirubin 1.8, ammonia level of 21. The patient was admitted under hospitalist service. She was tachycardiac but not hypotensive. She was started on Serax 30 mg in the emergency room. She was given 2 mg of Ativan in the emergency room, and was started on intravenous (IV) fluids with thiamine, folate, and multivitamin. The patient did not meet criteria for a prednisone and pentoxifylline for alcoholic hepatitis. Her liver enzymes started to improve until prior to discharge. AST and ALT have normalized, alkaline phosphatase 229, and total bilirubin normalized to 0.5. Electrolytes were replaced, magnesium and her potassium. Her thrombocytopenia had also improved and on discharge was 170. The patient was thought to be acutely anemic but was likely secondary to dilutional effect. She was not given any blood during the hospitalization and her hemoglobin stabilized at 9.3. Fecal occult blood was negative and no further workup was required at this time. The patient had a colonoscopy and esophagogastroduodenoscopy (EGD) that were done last year by Dr. Lloyd. EGD was on 02/13/2016, which showed gastritis and duodenitis. The colonoscopy was done in March of 2016, and showed no acute bleeding and no further recommendation until she is 51. Once the patient's symptoms had improved, she was discharged home after the clinic in [place] was contacted, and they recommended that the patient be given a prescription for hemoglobin and that the physician over at rehabilitation facility will evaluate her case and accept her on an outpatient basis. The patient was given a Serax prescription, a tapering dose. She was instructed not to take it with alcohol and that this medication is not to be mixed with alcohol. The patient stated that she understood and she has no intentions of drinking again. Discharge condition was stable. DISCHARGE MEDICATIONS: - Serax 10 mg as directed for nine capsules - buspirone 10 mg by mouth twice a day and 5 mg at bedtime - magnesium 500 mg by mouth at bedtime - melatonin 3 mg by mouth at bedtime - Zofran 4 mg as needed for nausea - potassium 99 mg by mouth at bedtime - Lyrica 75 mg by mouth three times a day - ranitidine one tablet by mouth daily - sertraline 100 mg at bedtime - Carafate 1 gram by mouth four times a day The patient's hypertensive medications were discontinued due to the patient's hypotension during the hospitalization. DISCHARGE INSTRUCTIONS: She is to followup with her primary care provider at [facility] in 2-5 days. The patient was given a prescription for complete blood count (CBC) next week. Results to go to her primary care provider. Diet regular. Activities as tolerated.
== END 2016-12-26 14:00 | disposition home or self-care (01) | DRG 434 ==
LOC: M ED 03:51 → M ED INP 08:53 → M MSPAV 09:58
PROVIDERS: ADMIT Internal Medicine Nephrology; ATTEND Internal Medicine
DX: K70.10 Alcoholic hepatitis without ascites (principal); E87.6 Hypokalemia; E83.42 Hypomagnesemia; D69.6 Thrombocytopenia, unspecified; K21.9 Gastro-esophageal reflux disease without esophagitis; Z79.899 Other long term (current) drug therapy; I95.9 Hypotension, unspecified; M79.7 Fibromyalgia; G25.81 Restless legs syndrome; F17.200 Nicotine dependence, unspecified, uncomplicated; F10.229 Alcohol dependence with intoxication, unspecified; D64.9 Anemia, unspecified